=== PATIENT | female | born 1965 | race African-American/Black ===

== ENCOUNTER 2021-04-30 09:24 | Emergency (ER) | payer OTHER ==
[~2021-04-30] VITALS: Ht 165.1 cm; Wt 78.0 kg
[2021-04-30 10:29] LABS: BASOPHILS % 0.4 % (0.0-2.0); EOSINOPHILS % 0.6 % (0.0-5.0); HEMATOCRIT. 28.1 % (36.0-48.0); HEMOGLOBIN. 9.3 g/dL (12.0-16.0); MEAN CORPUSCULAR VOLUME 87.4 fL (81.0-99.0); MEAN PLATELET VOLUME 6.6 fl (7.4-10.4); MONOCYTES % 5.3 % (2.0-8.0); NEUTROPHILS % 77.7 % (40.0-76.0); PLATELET 190 x1000/uL (130-400); RED BLOOD CELL COUNT 3.22 mill/uL (4.2-5.4); RED CELL DISTRIBUTION WIDTH 20.8 % (11.6-14.6)
[2021-04-30 10:36] LABS: CHLORIDE 107 mEq/L (98-107)
[2021-04-30 11:57] LABS: CLARITY URINE CLEAR (CLEAR); COLOR URINE YELLOW (YELLOW); KETONES URINE NEGATIVE (NEGATIVE); LEUKOCYTE ESTERASE URINE TRACE (NEGATIVE); NITRITE URINE NEGATIVE (NEGATIVE); OCCULT BLOOD URINE 1+ (NEGATIVE); PH URINE 6.5 (4.5-8.0); PROTEIN URINE 4+ (NEGATIVE); SPECIFIC GRAVITY URINE 1.014 (1.005-1.030); UROBILINOGEN URINE 0.2 E.U./dL (0.2-1.0)
[2021-04-30] MEDS ORDERED: CEFTRIAXONE 1 G PREMIX 50 ML IV ONE (12:45)
[2021-04-30] MEDS ORDERED: ASPIRIN 81MG TABLET PO ONE (14:00)
[2021-04-30] MEDS ORDERED: LOSA50TA41 PO (17:22)
[2021-04-30] MEDS ORDERED: AMLO10TA80 PO (17:23)
[2021-04-30] MEDS ORDERED: AMLODIPINE 10MG TABLET PO SCH (18:00)
[2021-04-30] MEDS ORDERED: LOSARTAN POTASSIUM 50 MG TABLET PO SCH (18:00)
[2021-04-30] MEDS ORDERED: TERA10CA4 PO (18:47)
[2021-04-30] MEDS ORDERED: LABE200T9 PO (18:48)
[2021-04-30] MEDS ORDERED: LABETALOL HCL 200MG TABLET PO SCH (21:00)
[2021-04-30 23:18] VITALS: BP 189/84
== END 2021-04-30 23:36 | disposition short-term general hospital (02) ==
LOC: ER 09:56
DX: R53.1 Weakness (principal); N39.0 Urinary tract infection, site not specified; I13.2 Hypertensive heart and chronic kidney disease with heart failure and with stage 5 chronic kidney disease, or end stage renal disease; E11.22 Type 2 diabetes mellitus with diabetic chronic kidney disease; N18.6 End stage renal disease; Z99.2 Dependence on renal dialysis; Z20.822 Contact with and (suspected) exposure to COVID-19; Z98.890 Other specified postprocedural states
CPT/HCPCS: 36415; 70450; 71045; 80053; 81003; 83880; 84484; 85025; 87086; 87426; 93005; 96365; 99285; C9803; J0696; U0003; U0005; Z7610

== ENCOUNTER 2022-01-29 20:41 | Emergency (ER) | payer OTHER ==
[~2022-01-29] VITALS: Ht 165.1 cm; Wt 81.0 kg
[~2022-01-29 20:41] MED LIST: AMLO10TA80 PO; LABE200T9 PO; LOSA50TA41 PO; TERA10CA4 PO
[2022-01-29] MEDS ORDERED: SODIUM CHLORIDE 0.9% 1,000 ML IV ONE (22:45)
[2022-01-29 23:46] LABS: BASOPHILS % 0.4 % (0.0-2.0); EOSINOPHILS % 0.6 % (0.0-5.0); HEMOGLOBIN. 9.7 g/dL (12.0-16.0); LYMPHOCYTES % 7.7 % (20.0-50.0); MEAN CORPUSCULAR HEMOGLOBIN 29.2 pg (28.0-32.0); MEAN CORPUSCULAR VOLUME 86.9 fL (81.0-99.0); MEAN PLATELET VOLUME 6.8 fl (7.4-10.4); MONOCYTES % 9.1 % (2.0-8.0); NEUTROPHILS % 82.2 % (40.0-76.0); PLATELET 205 x1000/uL (130-400); RED BLOOD CELL COUNT 3.33 mill/uL (4.2-5.4); RED CELL DISTRIBUTION WIDTH 17.8 % (11.6-14.6)
[2022-01-29 23:53] LABS: CHLORIDE 102 mEq/L (98-107)
[2022-01-30 00:40] LABS: CLARITY URINE CLOUDY (CLEAR); COLOR URINE YELLOW (YELLOW); KETONES URINE NEGATIVE (NEGATIVE); LEUKOCYTE ESTERASE URINE NEGATIVE (NEGATIVE); NITRITE URINE NEGATIVE (NEGATIVE); OCCULT BLOOD URINE TRACE (NEGATIVE); PROTEIN URINE 3+ (NEGATIVE); SPECIFIC GRAVITY URINE 1.013 (1.005-1.030); UROBILINOGEN URINE 0.2 E.U./dL (0.2-1.0)
[2022-01-30] MEDS ORDERED: LABETALOL 5MG/ML SYR 20 MG/4 ML SYRINGE IV ONE ×2 (01:30→04:30)
[2022-01-30] MEDS ORDERED: MORPHINE SULFATE 2 MG/ML CPJ (NOT FOR IM USE) IV ONE (03:00)
[2022-01-30] MEDS ORDERED: HYDRALAZINE 20MG/ML VIAL IV ONE (07:15)
[2022-01-30] MEDS ORDERED: MORPHINE SULFATE 4 MG/ML CPJ (NOT FOR IM USE) IV STA (08:59)
[2022-01-30] MEDS ORDERED: ONDANSETRON HCL 4MG/2ML INJ IV STA (08:59)
[2022-01-30 09:46] VITALS: BP 186/83
[2022-01-30] MEDS ORDERED: ONDANSETRON HCL 4MG/2ML INJ IV ONE (10:45)
== END 2022-01-30 11:34 | disposition short-term general hospital (02) ==
LOC: ER 20:41
DX: I13.2 Hypertensive heart and chronic kidney disease with heart failure and with stage 5 chronic kidney disease, or end stage renal disease (principal); E11.22 Type 2 diabetes mellitus with diabetic chronic kidney disease; M62.81 Muscle weakness (generalized); I50.9 Heart failure, unspecified; N18.6 End stage renal disease; E78.00 Pure hypercholesterolemia, unspecified; Z75.1 Person awaiting admission to adequate facility elsewhere; Z99.2 Dependence on renal dialysis; Z98.890 Other specified postprocedural states; Z79.899 Other long term (current) drug therapy; Z20.822 Contact with and (suspected) exposure to COVID-19
CPT/HCPCS: 36415; 71045; 80053; 81003; 82962; 83605; 84484; 85025; 87426; 93005; 96374; 96375; 96376; 99291; C9803; J0360; J2270; J2405; J3490; J7030

== ENCOUNTER 2022-02-09 23:53 | Emergency (ER) | payer OTHER ==
[~2022-02-09] VITALS: Ht 160 cm; Wt 83.5 kg
[2022-02-10 02:44] LABS: BASOPHILS % 0.8 % (0.0-2.0); EOSINOPHILS % 1.6 % (0.0-5.0); HEMATOCRIT. 22.3 % (36.0-48.0); HEMOGLOBIN. 7.6 g/dL (12.0-16.0); LYMPHOCYTES % 8.1 % (20.0-50.0); MEAN CORPUSCULAR HEMOGLOBIN 29.1 pg (28.0-32.0); MEAN PLATELET VOLUME 6.9 fl (7.4-10.4); NEUTROPHILS % 80.5 % (40.0-76.0); PLATELET 287 x1000/uL (130-400); RED BLOOD CELL COUNT 2.62 mill/uL (4.2-5.4); RED CELL DISTRIBUTION WIDTH 17.5 % (11.6-14.6)
[2022-02-10 02:53] LABS: CLARITY URINE CLEAR (CLEAR); COLOR URINE YELLOW (YELLOW); KETONES URINE NEGATIVE (NEGATIVE); LEUKOCYTE ESTERASE URINE TRACE (NEGATIVE); NITRITE URINE NEGATIVE (NEGATIVE); OCCULT BLOOD URINE TRACE (NEGATIVE); PH URINE 7.5 (4.5-8.0); PROTEIN URINE 3+ (NEGATIVE); SPECIFIC GRAVITY URINE 1.011 (1.005-1.030); UROBILINOGEN URINE 0.2 E.U./dL (0.2-1.0)
[2022-02-10 03:00] LABS: CHLORIDE 100 mEq/L (98-107)
[2022-02-10] MEDS ORDERED: CEFTRIAXONE 1 G PREMIX 50 ML IV NR (03:00)
[2022-02-10 03:08] LABS: BETA HYDROXYBUTYRATE 0.2 mMol/L (0.0-0.3)
[2022-02-10] MEDS ORDERED: ASPIRIN 325MG EC TABLET PO ONE (03:30)
[2022-02-10] MEDS ORDERED: LABETALOL HCL VIAL 20 MG/4 ML VIAL IV ONE (04:15)
[2022-02-10] MEDS ORDERED: HYDRALAZINE 20MG/ML VIAL IV ONE ×2 (04:45→09:00)
[2022-02-10] MEDS ORDERED: MORPHINE SULFATE 4 MG/ML CPJ (NOT FOR IM USE) IV ONE (05:45)
[2022-02-10 12:00] VITALS: BP 201/91
[2022-02-10] MEDS ORDERED: HYDRALAZINE HCL 100MG TABLET PO ONE (13:15)
[2022-02-10] MEDS ORDERED: HYDROCODONE/ACETAMINOPHEN 5/325MG TABLET PO ONE (13:15)
[2022-02-10] MEDS ORDERED: LEVETIRACETAM 500MG PREMIX 100 ML IV NR (13:30)
[2022-02-10] MEDS ORDERED: HYDRALAZINE HCL 100MG TABLET PO NR (14:00)
== END 2022-02-10 14:35 | disposition short-term general hospital (02) ==
LOC: ER 23:53
DX: E11.649 Type 2 diabetes mellitus with hypoglycemia without coma (principal); N39.0 Urinary tract infection, site not specified; R11.2 Nausea with vomiting, unspecified; R77.8 Other specified abnormalities of plasma proteins; I10 Essential (primary) hypertension; Z98.890 Other specified postprocedural states; Z20.822 Contact with and (suspected) exposure to COVID-19
CPT/HCPCS: 36415; 71045; 80053; 81003; 82010; 82962; 83690; 84484; 85025; 87426; 93005; 96361; 96374; 96375; 96376; 99285; C9803; J0360; J0696; J2270; J3490

== ENCOUNTER 2022-02-23 15:57 | Inpatient (IN) | payer OTHER ==
[~2022-02-23] VITALS: Ht 160 cm; Wt 79.4 kg
[2022-02-23] MEDS ORDERED: MORPHINE SULFATE 4 MG/ML CPJ (NOT FOR IM USE) IV STA (16:26)
[2022-02-23] MEDS ORDERED: SODIUM CHLORIDE 0.9% 1,000 ML IV ONE (16:30)
[2022-02-23] MEDS ORDERED: HYDRALAZINE 20MG/ML VIAL IV ONE (16:45)
[2022-02-23 16:52] LABS: BASOPHILS % 0.3 % (0.0-2.0); EOSINOPHILS % 0.4 % (0.0-5.0); HEMATOCRIT. 28.1 % (36.0-48.0); HEMOGLOBIN. 9.3 g/dL (12.0-16.0); LYMPHOCYTES % 14.8 % (20.0-50.0); MEAN CORPUSCULAR HEMOGLOBIN 29.1 pg (28.0-32.0); MEAN PLATELET VOLUME 7.7 fl (7.4-10.4); NEUTROPHILS % 78.5 % (40.0-76.0); PLATELET 198 x1000/uL (130-400); RED CELL DISTRIBUTION WIDTH 17.7 % (11.6-14.6)
[2022-02-23 17:00] LABS: CHLORIDE 95 mEq/L (98-107)
[2022-02-23] MEDS ORDERED: INSULIN LISPRO 100 UNITS/ML SUBCUT ONE (17:30)
[2022-02-23] MEDS ORDERED: NITROGLYCERIN 0.4MG TABLET SL SL PRN (17:45)
[2022-02-23] MEDS ORDERED: ASPIRIN 81MG TABLET PO ONE (18:15)
[2022-02-23] MEDS ORDERED: LABETALOL 5MG/ML SYR 20 MG/4 ML SYRINGE IV NR (18:15)
[2022-02-23] MEDS ORDERED: MORPHINE SULFATE 4 MG/ML CPJ (NOT FOR IM USE) IV ONE (19:15)
[2022-02-23] MEDS ORDERED: MORPHINE SULFATE 2 MG/ML CPJ (NOT FOR IM USE) IV PRN (21:15)
[2022-02-23] MEDS ORDERED: MAGNESIUM/ALUMINUM HYDROXIDE/SIMETHICONE 30ML UDC PO PRN (21:15)
[2022-02-23] MEDS ORDERED: ENOXAPARIN 40MG/0.4ML SYR SUBCUT SCH (21:15)
[2022-02-23] MEDS ORDERED: LORAZEPAM 2MG/ML CPJ IV PRN (21:15)
[2022-02-23] MEDS ORDERED: HYDROCODONE/ACETAMINOPHEN 5/325MG TABLET PO PRN (21:15)
[2022-02-23] MEDS ORDERED: GUAIFENESIN 200MG/10ML SUGAR FREE UDC PO PRN (21:15)
[2022-02-23] MEDS ORDERED: ACETAMINOPHEN 325MG TABLET PO PRN (21:15)
[2022-02-23] MEDS ORDERED: DOCUSATE SODIUM 100MG CAPSULE PO PRN (21:15)
[2022-02-23] MEDS ORDERED: IPRATROPIUM/ALBUTEROL 0.5-3(2.5)MG/3ML NEB HHN PRN (21:15)
[2022-02-23] MEDS ORDERED: DIPHENHYDRAMINE 50MG/ML VIAL IV PRN (21:15)
[2022-02-23] MEDS: CLONIDINE 0.2MG TABLET PO SCH (21:29)
[2022-02-23] MEDS: SODIUM CHLORIDE 0.9% INJ 3ML FLUSH IVF SCH (21:29)
[2022-02-23] MEDS: ENOXAPARIN 30MG/0.3ML SYR SUBCUT SCH (21:29)
[2022-02-23 23:52] LABS: BETA HYDROXYBUTYRATE 3.5 mMol/L (0.0-0.3)
[2022-02-24] VITALS (11 sets, daily range): BP systolic 154–185; BP diastolic 71–94
[2022-02-24] MEDS: HYDRALAZINE 20MG/ML VIAL IV PRN ×2 (01:34→08:22)
[2022-02-24] MEDS: CLONIDINE 0.2MG TABLET PO SCH ×3 (06:01→22:00)
[2022-02-24] MEDS: SODIUM CHLORIDE 0.9% INJ 3ML FLUSH IVF SCH ×3 (06:34→21:06)
[2022-02-24] MEDS: BLOOD SUGAR DIAGNOSTIC STRIP TEST SCH ×4 (07:41→21:05)
[2022-02-24] MEDS: INSULIN LISPRO 100 UNITS/ML SUBCUT SCH ×4 (08:09→21:03)
[2022-02-24] MEDS: ONDANSETRON HCL 4MG/2ML INJ IV PRN (08:22)
[2022-02-24 08:43] LABS: BASOPHILS % 0.8 % (0.0-2.0); EOSINOPHILS % 1.3 % (0.0-5.0); HEMATOCRIT. 25.1 % (36.0-48.0); HEMOGLOBIN. 8.3 g/dL (12.0-16.0); LYMPHOCYTES % 24.1 % (20.0-50.0); MEAN CORPUSCULAR HEMOGLOBIN 29.1 pg (28.0-32.0); MEAN CORPUSCULAR VOLUME 88.3 fL (81.0-99.0); MEAN PLATELET VOLUME 7.5 fl (7.4-10.4); MONOCYTES % 9.4 % (2.0-8.0); NEUTROPHILS % 64.4 % (40.0-76.0); PLATELET 204 x1000/uL (130-400); RED BLOOD CELL COUNT 2.84 mill/uL (4.2-5.4); RED CELL DISTRIBUTION WIDTH 17.6 % (11.6-14.6)
[2022-02-24 08:52] LABS: CHLORIDE 93 mEq/L (98-107)
[2022-02-24] MEDS ORDERED: FURO80TA87 MT (10:48)
[2022-02-24] MEDS ORDERED: SPIR25TA MT (10:48)
[2022-02-24] MEDS ORDERED: LABE100T5 MT (10:48)
[2022-02-24] MEDS ORDERED: TERA10CA4 PO (10:48)
[2022-02-24] MEDS ORDERED: LOSA50TA41 PO (10:48)
[2022-02-24] MEDS ORDERED: HYDR-4133 MT (10:48)
[2022-02-24] MEDS ORDERED: HYDRALAZINE HCL 50MG TABLET PO SCH (11:15)
[2022-02-24] MEDS ORDERED: INSULIN GLARGINE 100 UNITS/ML SUBCUT SCH (11:45)
[2022-02-24] MEDS: HYDRALAZINE HCL 50MG TABLET PO SCH ×2 (12:32→17:02)
[2022-02-24] MEDS: AMLODIPINE 5MG TABLET PO SCH ×2 (12:33→21:00)
[2022-02-24] MEDS: LOSARTAN POTASSIUM 50 MG TABLET PO SCH ×2 (14:58→20:00)
[2022-02-24] MEDS: SPIRONOLACTONE 25MG TABLET PO SCH (14:59)
[2022-02-24] MEDS: LABETALOL HCL 200MG TABLET PO SCH ×3 (14:59→21:00)
[2022-02-24] MEDS: FUROSEMIDE 40MG TABLET PO SCH ×2 (14:59→20:00)
[2022-02-24] MEDS ORDERED: FUROSEMIDE 40MG/4 ML UDC PO SCH (15:00)
[2022-02-24] MEDS ORDERED: AMLODIPINE 5MG TABLET PO SCH (21:00)
[2022-02-24] MEDS: TERAZOSIN HCL 5MG CAPSULE PO SCH (21:00)
[2022-02-24] MEDS: INSULIN GLARGINE 100 UNITS/ML SUBCUT SCH (21:03)
[2022-02-24] MEDS: ENOXAPARIN 30MG/0.3ML SYR SUBCUT SCH (21:04)
[2022-02-25] VITALS (12 sets, daily range): BP systolic 149–179; BP diastolic 73–100
[2022-02-25] MEDS: HYDRALAZINE 20MG/ML VIAL IV PRN ×2 (02:08→06:27)
[2022-02-25] MEDS: CLONIDINE 0.2MG TABLET PO SCH ×3 (05:04→21:52)
[2022-02-25] MEDS: SODIUM CHLORIDE 0.9% INJ 3ML FLUSH IVF SCH ×3 (05:06→21:52)
[2022-02-25 06:49] LABS: BASOPHILS % 0.8 % (0.0-2.0); EOSINOPHILS % 3.9 % (0.0-5.0); HEMATOCRIT. 24.7 % (36.0-48.0); HEMOGLOBIN. 8.3 g/dL (12.0-16.0); LYMPHOCYTES % 26.3 % (20.0-50.0); MEAN CORPUSCULAR HEMOGLOBIN 28.9 pg (28.0-32.0); MEAN CORPUSCULAR VOLUME 86.3 fL (81.0-99.0); MEAN PLATELET VOLUME 7.5 fl (7.4-10.4); MONOCYTES % 10.6 % (2.0-8.0); NEUTROPHILS % 58.4 % (40.0-76.0); PLATELET 206 x1000/uL (130-400); RED BLOOD CELL COUNT 2.86 mill/uL (4.2-5.4); RED CELL DISTRIBUTION WIDTH 17.3 % (11.6-14.6)
[2022-02-25] MEDS: BLOOD SUGAR DIAGNOSTIC STRIP TEST SCH ×4 (07:47→21:09)
[2022-02-25] MEDS: FUROSEMIDE 40MG TABLET PO SCH ×2 (08:37→17:19)
[2022-02-25] MEDS: HYDRALAZINE HCL 50MG TABLET PO SCH ×3 (08:38→17:19)
[2022-02-25] MEDS: LOSARTAN POTASSIUM 50 MG TABLET PO SCH ×2 (08:38→17:19)
[2022-02-25] MEDS: AMLODIPINE 5MG TABLET PO SCH ×2 (08:38→20:34)
[2022-02-25] MEDS: SPIRONOLACTONE 25MG TABLET PO SCH (08:39)
[2022-02-25] MEDS: LABETALOL HCL 200MG TABLET PO SCH ×4 (08:39→20:35)
[2022-02-25] MEDS: INSULIN GLARGINE 100 UNITS/ML SUBCUT SCH ×2 (08:40→22:00)
[2022-02-25] MEDS: INSULIN LISPRO 100 UNITS/ML SUBCUT SCH ×4 (08:40→21:00)
[2022-02-25] MEDS: FOLIC ACID/VITAMIN B COMP W-C TABLET PO SCH (13:06)
[2022-02-25] MEDS: CALCIUM ACETATE 667MG CAPSULE PO SCH ×2 (13:06→17:19)
[2022-02-25] MEDS: DEXTROSE 50% WATER 50ML SYRINGE IV PRN (13:46)
[2022-02-25] MEDS: TERAZOSIN HCL 5MG CAPSULE PO SCH (20:34)
[2022-02-25] MEDS: ENOXAPARIN 30MG/0.3ML SYR SUBCUT SCH (20:39)
[2022-02-26] VITALS (12 sets, daily range): BP systolic 133–176; BP diastolic 70–96
[2022-02-26] MEDS: ONDANSETRON HCL 4MG/2ML INJ IV PRN ×2 (02:14→10:18)
[2022-02-26] MEDS: HYDRALAZINE 20MG/ML VIAL IV PRN ×2 (03:03→10:19)
[2022-02-26] MEDS: SODIUM CHLORIDE 0.9% INJ 3ML FLUSH IVF SCH ×3 (06:10→22:17)
[2022-02-26] MEDS: CLONIDINE 0.2MG TABLET PO SCH ×3 (06:10→22:17)
[2022-02-26] MEDS: BLOOD SUGAR DIAGNOSTIC STRIP TEST SCH ×4 (07:30→20:57)
[2022-02-26] MEDS: LOSARTAN POTASSIUM 50 MG TABLET PO SCH ×2 (10:14→18:30)
[2022-02-26] MEDS: FUROSEMIDE 40MG TABLET PO SCH ×2 (10:15→18:25)
[2022-02-26] MEDS: CALCIUM ACETATE 667MG CAPSULE PO SCH ×3 (10:16→18:26)
[2022-02-26] MEDS: HYDRALAZINE HCL 50MG TABLET PO SCH ×3 (10:16→18:26)
[2022-02-26] MEDS: SPIRONOLACTONE 25MG TABLET PO SCH (10:16)
[2022-02-26] MEDS: LABETALOL HCL 200MG TABLET PO SCH ×4 (10:17→20:39)
[2022-02-26] MEDS: AMLODIPINE 5MG TABLET PO SCH ×2 (10:18→20:39)
[2022-02-26] MEDS: INSULIN LISPRO 100 UNITS/ML SUBCUT SCH ×4 (10:20→20:57)
[2022-02-26] MEDS: INSULIN GLARGINE 100 UNITS/ML SUBCUT SCH ×2 (10:21→21:48)
[2022-02-26] MEDS: FOLIC ACID/VITAMIN B COMP W-C TABLET PO SCH (11:17)
[2022-02-26] MEDS ORDERED: NALOXONE HCL 0.4MG/ML VIAL IV PRN (15:30)
[2022-02-26] MEDS: DEXTROSE 50% WATER 50ML SYRINGE IV PRN (17:37)
[2022-02-26] MEDS: ENOXAPARIN 30MG/0.3ML SYR SUBCUT SCH (20:37)
[2022-02-26] MEDS: TERAZOSIN HCL 5MG CAPSULE PO SCH (20:38)
[2022-02-26] MEDS ORDERED: EPOETIN ALFA-EPBX 10,000 UNIT/ML VIAL SUBCUT SCH (21:00)
[2022-02-27] VITALS (13 sets, daily range): BP systolic 138–179; BP diastolic 75–101
[2022-02-27] MEDS: HYDRALAZINE HCL 50MG TABLET PO SCH ×4 (00:09→17:39)
[2022-02-27] MEDS: CLONIDINE 0.2MG TABLET PO SCH ×3 (05:16→22:12)
[2022-02-27] MEDS: SODIUM CHLORIDE 0.9% INJ 3ML FLUSH IVF SCH ×2 (05:16→14:00)
[2022-02-27 05:23] LABS: BASOPHILS % 0.8 % (0.0-2.0); EOSINOPHILS % 5.6 % (0.0-5.0); HEMATOCRIT. 25.6 % (36.0-48.0); HEMOGLOBIN. 8.5 g/dL (12.0-16.0); LYMPHOCYTES % 40.8 % (20.0-50.0); MEAN CORPUSCULAR HEMOGLOBIN 28.4 pg (28.0-32.0); MEAN CORPUSCULAR VOLUME 85.8 fL (81.0-99.0); MEAN PLATELET VOLUME 7.1 fl (7.4-10.4); MONOCYTES % 13.5 % (2.0-8.0); NEUTROPHILS % 39.3 % (40.0-76.0); PLATELET 171 x1000/uL (130-400); RED BLOOD CELL COUNT 2.98 mill/uL (4.2-5.4); RED CELL DISTRIBUTION WIDTH 17.4 % (11.6-14.6)
[2022-02-27] MEDS: HYDRALAZINE 20MG/ML VIAL IV PRN ×2 (06:47→18:48)
[2022-02-27] MEDS: BLOOD SUGAR DIAGNOSTIC STRIP TEST SCH ×4 (07:30→20:06)
[2022-02-27] MEDS: INSULIN LISPRO 100 UNITS/ML SUBCUT SCH ×4 (08:45→20:08)
[2022-02-27] MEDS: FUROSEMIDE 40MG TABLET PO SCH ×2 (08:46→17:30)
[2022-02-27] MEDS: LOSARTAN POTASSIUM 50 MG TABLET PO SCH ×2 (08:46→17:45)
[2022-02-27] MEDS: SPIRONOLACTONE 25MG TABLET PO SCH (08:46)
[2022-02-27] MEDS: FOLIC ACID/VITAMIN B COMP W-C TABLET PO SCH (08:46)
[2022-02-27] MEDS: LABETALOL HCL 200MG TABLET PO SCH ×4 (08:46→20:06)
[2022-02-27] MEDS: AMLODIPINE 5MG TABLET PO SCH ×2 (08:47→20:05)
[2022-02-27] MEDS: CALCIUM ACETATE 667MG CAPSULE PO SCH ×3 (08:56→17:39)
[2022-02-27] MEDS: TERAZOSIN HCL 5MG CAPSULE PO SCH (20:06)
[2022-02-27] MEDS: ENOXAPARIN 30MG/0.3ML SYR SUBCUT SCH (20:08)
== END 2022-02-27 22:20 | disposition home or self-care (01) | DRG 640 ==
LOC: ER 15:57 → 5EST 20:07 → EDBEDREQSVC 21:33 → EDBEDREQTM 21:33 → ENRESERV 22:15 → 5EST 02-24 02:30
PROVIDERS: ADMIT Internal Medicine; ATTEND Internal Medicine
PROC: 3E1M39Z Irrigation of Peritoneal Cavity using Dialysate, Percutaneous Approach (ICD-10-PCS; principal; 2022-02-26)
DX: E87.70 Fluid overload, unspecified (principal); E43 Unspecified severe protein-calorie malnutrition; N18.6 End stage renal disease; I16.1 Hypertensive emergency; I12.0 Hypertensive chronic kidney disease with stage 5 chronic kidney disease or end stage renal disease; E87.1 Hypo-osmolality and hyponatremia; E87.2 Acidosis; E86.0 Dehydration; D64.9 Anemia, unspecified; E11.22 Type 2 diabetes mellitus with diabetic chronic kidney disease; Z20.822 Contact with and (suspected) exposure to COVID-19; E11.65 Type 2 diabetes mellitus with hyperglycemia; E78.5 Hyperlipidemia, unspecified; F17.200 Nicotine dependence, unspecified, uncomplicated; I51.7 Cardiomegaly; J44.9 Chronic obstructive pulmonary disease, unspecified; R19.7 Diarrhea, unspecified; Z88.8 Allergy status to other drugs, medicaments and biological substances; Z99.2 Dependence on renal dialysis; Z79.899 Other long term (current) drug therapy; Z68.31 Body mass index [BMI] 31.0-31.9, adult
CPT/HCPCS: 36415; 71045; 80048; 80051; 80053; 82010; 82947; 82962; 84484; 85025; 87426; 93005; 93306; 97162; 99285; J0360; J0885; J1650; J1815; J2270; J2405; J3490; J7030

== ENCOUNTER 2022-07-25 23:50 | Inpatient (IN) | payer OTHER ==
[~2022-07-25] VITALS: Ht 165.1 cm; Wt 87.1 kg
[~2022-07-25 23:50] MED LIST changes: +FURO80TA87 MT; +HYDR-4133 MT; +LABE100T9 MT; -LABE200T9 PO; +SPIR25TA MT
[2022-07-26] MEDS ORDERED: LABETALOL 5MG/ML SYR 20 MG/4 ML SYRINGE IV NR (00:30)
[2022-07-26 00:50] LABS: BASOPHILS % 0.4 % (0.0-2.0); EOSINOPHILS % 2.7 % (0.0-5.0); HEMATOCRIT. 23.5 % (36.0-48.0); HEMOGLOBIN. 8.1 g/dL (12.0-16.0); LYMPHOCYTES % 13.9 % (20.0-50.0); MEAN CORPUSCULAR HEMOGLOBIN 30.9 pg (28.0-32.0); MEAN CORPUSCULAR VOLUME 89.9 fL (81.0-99.0); MEAN PLATELET VOLUME 6.9 fl (7.4-10.4); MONOCYTES % 7.8 % (2.0-8.0); NEUTROPHILS % 75.2 % (40.0-76.0); PLATELET 211 x1000/uL (130-400); RED BLOOD CELL COUNT 2.61 mill/uL (4.2-5.4); RED CELL DISTRIBUTION WIDTH 16.5 % (11.6-14.6)
[2022-07-26 00:54] LABS: CHLORIDE 96 mEq/L (98-107)
[2022-07-26] MEDS ORDERED: HYDRALAZINE 20MG/ML VIAL IV ONE (03:45)
[2022-07-26] MEDS ORDERED: ONDANSETRON HCL 4MG/2ML INJ IV PRN (05:45)
[2022-07-26] MEDS ORDERED: ACETAMINOPHEN 325MG TABLET PO PRN (05:45)
[2022-07-26] MEDS ORDERED: NA PHOS,M-B/NA PHOS,DI-BA ENEMA 118ML PR PRN (05:45)
[2022-07-26] MEDS ORDERED: IPRATROPIUM/ALBUTEROL 0.5-3(2.5)MG/3ML NEB HHN PRN (05:45)
[2022-07-26] MEDS ORDERED: MAGNESIUM/ALUMINUM HYDROXIDE/SIMETHICONE 30ML UDC PO PRN (05:45)
[2022-07-26] MEDS ORDERED: GUAIFENESIN 200MG/10ML SUGAR FREE UDC PO PRN (05:45)
[2022-07-26] MEDS ORDERED: DOCUSATE SODIUM 100MG CAPSULE PO PRN (05:45)
[2022-07-26] MEDS ORDERED: DEXTROSE 50% WATER 50ML SYRINGE IV PRN (06:00)
[2022-07-26] MEDS ORDERED: FUROSEMIDE 40MG/4ML VIAL IVP SCH ×3 (06:00→18:00)
[2022-07-26 06:19] LABS: BASOPHILS % 0.7 % (0.0-2.0); EOSINOPHILS % 2.8 % (0.0-5.0); HEMATOCRIT. 22.8 % (36.0-48.0); HEMOGLOBIN. 7.8 g/dL (12.0-16.0); LYMPHOCYTES % 12.5 % (20.0-50.0); MEAN CORPUSCULAR HEMOGLOBIN 30.8 pg (28.0-32.0); MEAN CORPUSCULAR VOLUME 90.3 fL (81.0-99.0); MEAN PLATELET VOLUME 7.5 fl (7.4-10.4); MONOCYTES % 5.4 % (2.0-8.0); NEUTROPHILS % 78.6 % (40.0-76.0); PLATELET 210 x1000/uL (130-400); RED BLOOD CELL COUNT 2.52 mill/uL (4.2-5.4); RED CELL DISTRIBUTION WIDTH 17.1 % (11.6-14.6)
[2022-07-26 06:28] LABS: CHLORIDE 97 mEq/L (98-107)
[2022-07-26 06:35] LABS: PHOSPHORUS 5.4 mg/dL (2.5-4.9); TOTAL IRON BINDING CAPACITY 237 ug/dL (250-450)
[2022-07-26 07:01] LABS: VITAMIN B12 SERUM 600 pg/mL (211-911)
[2022-07-26] MEDS: ACETAMINOPHEN 325MG TABLET PO PRN ×2 (07:05→16:00)
[2022-07-26] MEDS: CLONIDINE 0.1MG TABLET PO PRN ×2 (07:43→17:53)
[2022-07-26] MEDS: SPIRONOLACTONE 25MG TABLET PO SCH (09:00)
[2022-07-26] MEDS: LABETALOL HCL 100MG TABLET PO SCH ×4 (09:00→22:22)
[2022-07-26] MEDS: BLOOD SUGAR DIAGNOSTIC STRIP TEST SCH ×4 (09:00→21:00)
[2022-07-26] MEDS: HYDRALAZINE HCL 10MG TABLET PO SCH ×3 (09:00→16:08)
[2022-07-26] MEDS: LOSARTAN POTASSIUM 50 MG TABLET PO SCH ×2 (09:28→16:10)
[2022-07-26] MEDS: AMLODIPINE 10MG TABLET PO SCH (09:28)
[2022-07-26] MEDS: ENOXAPARIN 30MG/0.3ML SYR SUBCUT SCH (09:29)
[2022-07-26] MEDS ORDERED: SODIUM POLYSTYRENE SULFONATE 15 G/60 ML BOT PO NR (09:30)
[2022-07-26] MEDS: FUROSEMIDE 40MG/4ML VIAL IVP SCH ×3 (09:45→22:57)
[2022-07-26] MEDS ORDERED: ENOXAPARIN 40MG/0.4ML SYR SUBCUT ONE (10:00)
[2022-07-26 10:14] LABS: BG BASE EXCESS -0.3 mmol/L (-2.0-2.0); BG DEOXYHEMOGLOBIN 7.8 % (0.0-5.0); BG HCO3 ACT 23.6 mmol/L (22.0-26.0); BG METHEMOGLOBIN 0.3 % (0.0-1.5); BG OXYGEN SATURATION 92.2 % (92.0-98.5); BG OXYHEMOGLOBIN 91.9 % (94.0-97.0); BG PCO2 35.3 mmHg (35.0-45.0); BG PH 7.443 (7.350-7.450); BG PO2 64.6 mmHg (75.0-100.0); BG SAMPLE SITE RIGHT RADIAL; BG VENT MODE NASAL CANNULA
[2022-07-26 11:27] VITALS: BP 179/98
[2022-07-26 11:29] VITALS: BP 179/98
[2022-07-26] MEDS: INSULIN LISPRO 100 UNITS/ML SUBCUT SCH ×3 (12:20→22:25)
[2022-07-26] MEDS: INSULIN GLARGINE 100 UNITS/ML SUBCUT SCH ×2 (12:20→22:24)
[2022-07-26 13:00] VITALS: BP 166/95
[2022-07-26 14:00] VITALS: BP 162/95
[2022-07-26 16:00] VITALS: BP 198/100
[2022-07-26 16:27] LABS: CREATINE KINASE MB FRACTION 7.4 ng/mL (0.5-3.6)
[2022-07-26 20:00] VITALS: BP 189/93
[2022-07-26] MEDS ORDERED: EPOETIN ALFA-EPBX 4,000 UNIT/ML VIAL SUBCUT NR (21:00)
[2022-07-26] MEDS ORDERED: INSULIN LISPRO 100 UNITS/ML SUBCUT NR (22:03)
[2022-07-26] MEDS: FAMOTIDINE 20MG TABLET PO SCH (22:22)
[2022-07-26] MEDS: TERAZOSIN HCL 5MG CAPSULE PO SCH (22:52)
[2022-07-26 23:19] LABS: CREATINE KINASE MB FRACTION 7.1 ng/mL (0.5-3.6)
[2022-07-26] MEDS ORDERED: CALC667C MT (23:53)
[2022-07-27] VITALS (10 sets, daily range): BP systolic 155–176; BP diastolic 85–102
[2022-07-27] MEDS ORDERED: CLON1PAT11 TP (00:38)
[2022-07-27] MEDS: CLONIDINE 0.1MG TABLET PO PRN ×2 (00:39→14:06)
[2022-07-27] MEDS: CALCIUM ACETATE 667MG CAPSULE PO SCH ×4 (00:39→18:01)
[2022-07-27] MEDS: ACETAMINOPHEN 325MG TABLET PO PRN ×3 (00:42→14:39)
[2022-07-27] MEDS: FUROSEMIDE 40MG/4ML VIAL IVP SCH ×3 (06:41→22:06)
[2022-07-27] MEDS: BLOOD SUGAR DIAGNOSTIC STRIP TEST SCH ×4 (06:54→21:50)
[2022-07-27] MEDS: INSULIN LISPRO 100 UNITS/ML SUBCUT SCH ×4 (07:20→22:15)
[2022-07-27 08:06] LABS: BASOPHILS % 0.6 % (0.0-2.0); EOSINOPHILS % 3.3 % (0.0-5.0); LYMPHOCYTES % 14.4 % (20.0-50.0); MEAN CORPUSCULAR HEMOGLOBIN 30.5 pg (28.0-32.0); MEAN CORPUSCULAR VOLUME 90.6 fL (81.0-99.0); MONOCYTES % 7.9 % (2.0-8.0); NEUTROPHILS % 73.8 % (40.0-76.0); PLATELET 173 x1000/uL (130-400); RED BLOOD CELL COUNT 2.29 mill/uL (4.2-5.4); RED CELL DISTRIBUTION WIDTH 17.2 % (11.6-14.6)
[2022-07-27] MEDS: LOSARTAN POTASSIUM 50 MG TABLET PO SCH ×2 (08:26→18:01)
[2022-07-27] MEDS: LABETALOL HCL 100MG TABLET PO SCH ×3 (08:26→18:01)
[2022-07-27] MEDS: AMLODIPINE 10MG TABLET PO SCH (08:26)
[2022-07-27] MEDS: ENOXAPARIN 30MG/0.3ML SYR SUBCUT SCH (08:27)
[2022-07-27] MEDS: SPIRONOLACTONE 25MG TABLET PO SCH (08:27)
[2022-07-27] MEDS: HYDRALAZINE HCL 10MG TABLET PO SCH ×3 (08:27→18:01)
[2022-07-27 08:53] LABS: HEMATOCRIT. 20.8 % (36.0-48.0)
[2022-07-27 08:59] LABS: CREATINE KINASE MB FRACTION 6.3 ng/mL (0.5-3.6); PHOSPHORUS 5.1 mg/dL (2.5-4.9)
[2022-07-27 09:56] LABS: T4 FREE 0.59 ng/dL (0.76-1.46)
[2022-07-27] MEDS: INSULIN GLARGINE 100 UNITS/ML SUBCUT SCH ×2 (11:00→22:15)
[2022-07-27] MEDS: TERAZOSIN HCL 5MG CAPSULE PO SCH (22:09)
[2022-07-27] MEDS: FAMOTIDINE 20MG TABLET PO SCH (22:10)
[2022-07-28 00:22] VITALS: BP 173/87
[2022-07-28] MEDS: CLONIDINE 0.1MG TABLET PO PRN ×2 (00:28→06:26)
[2022-07-28 04:07] VITALS: BP 170/81
[2022-07-28] MEDS ORDERED: INSULIN LISPRO 100 UNITS/ML SUBCUT NR (04:30)
[2022-07-28 05:56] LABS: BASOPHILS % 0.5 % (0.0-2.0); EOSINOPHILS % 4.5 % (0.0-5.0); HEMATOCRIT. 22.6 % (36.0-48.0); HEMOGLOBIN. 7.6 g/dL (12.0-16.0); LYMPHOCYTES % 14.1 % (20.0-50.0); MEAN CORPUSCULAR HEMOGLOBIN 30.5 pg (28.0-32.0); MEAN CORPUSCULAR VOLUME 91.1 fL (81.0-99.0); MEAN PLATELET VOLUME 7.4 fl (7.4-10.4); MONOCYTES % 6.7 % (2.0-8.0); NEUTROPHILS % 74.2 % (40.0-76.0); PLATELET 186 x1000/uL (130-400); RED BLOOD CELL COUNT 2.48 mill/uL (4.2-5.4); RED CELL DISTRIBUTION WIDTH 17.3 % (11.6-14.6)
[2022-07-28 06:10] LABS: PHOSPHORUS 4.8 mg/dL (2.5-4.9)
[2022-07-28] MEDS: FUROSEMIDE 40MG/4ML VIAL IVP SCH (06:17)
[2022-07-28] MEDS: BLOOD SUGAR DIAGNOSTIC STRIP TEST SCH (06:28)
[2022-07-28] MEDS: INSULIN LISPRO 100 UNITS/ML SUBCUT SCH (06:45)
[2022-07-28 07:49] VITALS: BP 174/90
[2022-07-28] MEDS: SPIRONOLACTONE 25MG TABLET PO SCH (08:28)
[2022-07-28] MEDS: ACETAMINOPHEN 325MG TABLET PO PRN (08:29)
[2022-07-28] MEDS: LABETALOL HCL 100MG TABLET PO SCH (08:29)
[2022-07-28] MEDS: CALCIUM ACETATE 667MG CAPSULE PO SCH (08:29)
[2022-07-28] MEDS: HYDRALAZINE HCL 10MG TABLET PO SCH (08:29)
[2022-07-28] MEDS: AMLODIPINE 10MG TABLET PO SCH (08:29)
[2022-07-28] MEDS: LOSARTAN POTASSIUM 50 MG TABLET PO SCH (08:30)
[2022-07-28] MEDS ORDERED: ENOXAPARIN 40MG/0.4ML SYR SUBCUT SCH (09:00)
== END 2022-07-28 08:43 | disposition short-term general hospital (02) | DRG 304 ==
LOC: ER 23:50 → 3WST 07-26 05:23 → ENRESERV 07-26 09:17
PROVIDERS: ADMIT Internal Medicine; ATTEND Internal Medicine
PROC: 3E1M39Z Irrigation of Peritoneal Cavity using Dialysate, Percutaneous Approach (ICD-10-PCS; principal; 2022-07-26)
DX: I16.1 Hypertensive emergency (principal); E43 Unspecified severe protein-calorie malnutrition; I50.33 Acute on chronic diastolic (congestive) heart failure; N18.6 End stage renal disease; J96.01 Acute respiratory failure with hypoxia; E87.1 Hypo-osmolality and hyponatremia; I13.2 Hypertensive heart and chronic kidney disease with heart failure and with stage 5 chronic kidney disease, or end stage renal disease; E78.5 Hyperlipidemia, unspecified; D63.1 Anemia in chronic kidney disease; E11.22 Type 2 diabetes mellitus with diabetic chronic kidney disease; E03.9 Hypothyroidism, unspecified; G47.33 Obstructive sleep apnea (adult) (pediatric); E87.5 Hyperkalemia; E83.42 Hypomagnesemia; E11.65 Type 2 diabetes mellitus with hyperglycemia; Z20.822 Contact with and (suspected) exposure to COVID-19; R07.9 Chest pain, unspecified; E83.39 Other disorders of phosphorus metabolism; Z79.899 Other long term (current) drug therapy; Z99.2 Dependence on renal dialysis; Z86.73 Personal history of transient ischemic attack (TIA), and cerebral infarction without residual deficits; Z82.49 Family history of ischemic heart disease and other diseases of the circulatory system; Z83.3 Family history of diabetes mellitus; Z88.8 Allergy status to other drugs, medicaments and biological substances; Z68.32 Body mass index [BMI] 32.0-32.9, adult
CPT/HCPCS: 36415; 36600; 71045; 80048; 80053; 80061; 82375; 82550; 82553; 82607; 82746; 82805; 82962; 83036; 83540; 83550; 83735; 83880; 84100; 84439; 84443; 84484; 85025; 87426; 90945; 93306; 93970; 99285; C9803; J0360; J0885; J1650; J1815; J1940; J2405; J3490

== ENCOUNTER 2022-09-13 08:03 | Inpatient (IN) | payer OTHER ==
[~2022-09-13] VITALS: Ht 160 cm; Wt 77.1 kg
[2022-09-13] MEDS ORDERED: OXYMETAZOLINE HCL NASAL SPRAY 15ML BOTHNSTRLS STA (10:00)
[2022-09-13 10:15] LABS: BASOPHILS % 0.5 % (0.0-2.0); EOSINOPHILS % 2.6 % (0.0-5.0); HEMATOCRIT. 32.9 % (36.0-48.0); HEMOGLOBIN. 10.5 g/dL (12.0-16.0); LYMPHOCYTES % 14.6 % (20.0-50.0); MEAN CORPUSCULAR HEMOGLOBIN 29.3 pg (28.0-32.0); MEAN CORPUSCULAR VOLUME 91.7 fL (81.0-99.0); MEAN PLATELET VOLUME 7.4 fl (7.4-10.4); MONOCYTES % 10.8 % (2.0-8.0); NEUTROPHILS % 71.5 % (40.0-76.0); PLATELET 254 x1000/uL (130-400); RED BLOOD CELL COUNT 3.59 mill/uL (4.2-5.4); RED CELL DISTRIBUTION WIDTH 21.8 % (11.6-14.6)
[2022-09-13] MEDS ORDERED: CEFTRIAXONE 1 G PREMIX 50 ML IV ONE (10:15)
[2022-09-13] MEDS ORDERED: AZITHROMYCIN 500MG/250ML 250 ML IV ONE (10:15)
[2022-09-13 10:35] LABS: CHLORIDE 98 mEq/L (98-107)
[2022-09-13] MEDS ORDERED: DOCUSATE SODIUM 100MG CAPSULE PO PRN (15:30)
[2022-09-13] MEDS ORDERED: ACETAMINOPHEN 325MG TABLET PO PRN ×2 (15:30)
[2022-09-13] MEDS ORDERED: ONDANSETRON HCL 4MG/2ML INJ IV PRN (15:30)
[2022-09-13] MEDS ORDERED: IPRATROPIUM/ALBUTEROL 0.5-3(2.5)MG/3ML NEB HHN PRN (15:30)
[2022-09-13] MEDS ORDERED: LORAZEPAM 0.5MG TABLET PO PRN (15:30)
[2022-09-13] MEDS ORDERED: HYDROCODONE/ACETAMINOPHEN 5/325MG TABLET PO PRN (15:30)
[2022-09-13] MEDS: AMLODIPINE 10MG TABLET PO SCH (16:08)
[2022-09-13] MEDS: LOSARTAN POTASSIUM 100 MG TABLET PO SCH (16:08)
[2022-09-13] MEDS ORDERED: DEXTROSE 50% WATER 50ML SYRINGE IV PRN (17:00)
[2022-09-13] MEDS: INSULIN LISPRO 100 UNITS/ML SUBCUT SCH ×2 (17:13→21:15)
[2022-09-13] MEDS ORDERED: INSULIN LISPRO 100 UNITS/ML SUBCUT NR (18:15)
[2022-09-13] MEDS: BLOOD SUGAR DIAGNOSTIC STRIP TEST SCH (21:03)
[2022-09-13] MEDS: LABETALOL HCL 300MG TABLET PO SCH (21:39)
[2022-09-13] MEDS ORDERED: INSULIN GLARGINE 100 UNITS/ML SUBCUT SCH (22:00)
[2022-09-13] MEDS: HYDRALAZINE HCL 100MG TABLET PO SCH (22:54)
[2022-09-14] VITALS (12 sets, daily range): BP systolic 140–180; BP diastolic 64–86
[2022-09-14] MEDS: CLONIDINE 0.1MG TABLET PO PRN ×2 (00:37→14:31)
[2022-09-14] MEDS ORDERED: CLON1PAT12 TD (03:43)
[2022-09-14] MEDS ORDERED: LABE300T36 PO (03:43)
[2022-09-14] MEDS ORDERED: LEVO300T6 PO (03:43)
[2022-09-14] MEDS ORDERED: LOSA100T32 PO (03:43)
[2022-09-14] MEDS ORDERED: AMLO10TA80 PO (03:43)
[2022-09-14] MEDS ORDERED: PRAV80TA19 PO (03:43)
[2022-09-14] MEDS ORDERED: HYDR-4135 PO (03:43)
[2022-09-14] MEDS ORDERED: TERA10CA4 PO (03:43)
[2022-09-14] MEDS ORDERED: CINA30TA5 PO (03:43)
[2022-09-14] MEDS: HYDRALAZINE HCL 100MG TABLET PO SCH ×2 (06:08→13:54)
[2022-09-14] MEDS: BLOOD SUGAR DIAGNOSTIC STRIP TEST SCH ×2 (06:08→11:40)
[2022-09-14] MEDS: INSULIN LISPRO 100 UNITS/ML SUBCUT SCH ×2 (06:10→13:58)
[2022-09-14] MEDS ORDERED: ASPIRIN 81MG TABLET PO SCH (09:00)
[2022-09-14 09:04] LABS: HEMATOCRIT. 28.2 % (36.0-48.0); HEMOGLOBIN. 9.3 g/dL (12.0-16.0); MEAN CORPUSCULAR HEMOGLOBIN 29.8 pg (28.0-32.0); MEAN CORPUSCULAR VOLUME 90.7 fL (81.0-99.0); MEAN PLATELET VOLUME 7.4 fl (7.4-10.4); PLATELET 226 x1000/uL (130-400); RED BLOOD CELL COUNT 3.11 mill/uL (4.2-5.4); RED CELL DISTRIBUTION WIDTH 21.8 % (11.6-14.6)
[2022-09-14] MEDS: AMLODIPINE 10MG TABLET PO SCH (09:44)
[2022-09-14] MEDS: LOSARTAN POTASSIUM 100 MG TABLET PO SCH (09:44)
[2022-09-14] MEDS: LABETALOL HCL 300MG TABLET PO SCH (09:45)
[2022-09-14] MEDS ORDERED: LEVOTHYROXINE SODIUM 150MCG TABLET PO SCH (10:00)
[2022-09-14] MEDS ORDERED: CINACALCET HCL 30MG TABLET PO SCH (11:00)
[2022-09-14 13:37] LABS: HEPATITIS B SURFACE ANTIGEN NEGATIVE
[2022-09-14] MEDS ORDERED: ATORVASTATIN CALCIUM 40MG TABLET PO SCH (21:00)
[2022-09-15 00:33] LABS: PLATELET ESTIMATE NORMAL
== END 2022-09-14 17:07 | disposition home or self-care (01) | DRG 150 ==
LOC: ER 08:03 → MICUSO 11:38 → EDBEDREQ 11:42 → 7EST 09-14 00:54
PROVIDERS: ADMIT Internal Medicine; ATTEND Internal Medicine
PROC: 5A1D70Z Performance of Urinary Filtration, Intermittent, Less than 6 Hours Per Day (ICD-10-PCS; principal; 2022-09-14)
DX: R04.0 Epistaxis (principal); I21.4 Non-ST elevation (NSTEMI) myocardial infarction; J18.9 Pneumonia, unspecified organism; N18.6 End stage renal disease; I13.2 Hypertensive heart and chronic kidney disease with heart failure and with stage 5 chronic kidney disease, or end stage renal disease; E11.649 Type 2 diabetes mellitus with hypoglycemia without coma; E87.70 Fluid overload, unspecified; I50.9 Heart failure, unspecified; I35.8 Other nonrheumatic aortic valve disorders; I16.0 Hypertensive urgency; G47.33 Obstructive sleep apnea (adult) (pediatric); E11.65 Type 2 diabetes mellitus with hyperglycemia; E11.22 Type 2 diabetes mellitus with diabetic chronic kidney disease; D64.9 Anemia, unspecified; D72.819 Decreased white blood cell count, unspecified; Z96.41 Presence of insulin pump (external) (internal); Z86.73 Personal history of transient ischemic attack (TIA), and cerebral infarction without residual deficits; I25.2 Old myocardial infarction; Z99.2 Dependence on renal dialysis; Z88.8 Allergy status to other drugs, medicaments and biological substances; Z79.4 Long term (current) use of insulin
CPT/HCPCS: 36415; 71045; 80048; 80053; 82962; 83036; 84484; 85025; 86705; 86709; 86803; 86850; 86900; 87340; 87426; 87804; 90935; 93005; 99291; C9803; J0456; J0696; J1815; J2405

== ENCOUNTER 2022-11-19 06:20 | Emergency (ER) | payer OTHER ==
[~2022-11-19] VITALS: Ht 160 cm; Wt 69.0 kg
[~2022-11-19 06:20] MED LIST changes: +CINA30TA5 PO; +CLON1PAT12 TD; -FURO80TA87 MT; -HYDR-4133 MT; +HYDR-4135 PO; -LABE100T9 MT; +LABE300T36 PO; +LEVO300T6 PO; +LOSA100T32 PO; -LOSA50TA41 PO; +PRAV80TA19 PO; -SPIR25TA MT
[2022-11-19 07:18] LABS: BG BASE EXCESS 4.5 mmol/L (-2.0-2.0); BG CARBOXYHEMOGLOBIN 0.8 % (0.5-1.5); BG METHEMOGLOBIN 0.1 % (0.0-1.5); BG OXYHEMOGLOBIN 95.1 % (94.0-97.0); BG PCO2 37.2 mmHg (35.0-45.0); BG PH 7.495 (7.350-7.450); BG PO2 85.9 mmHg (75.0-100.0); BG SAMPLE SITE RIGHT RADIAL; BG TOTAL HEMOGLOBIN 9.1 g/dL (12.0-18.0); BG VENT MODE ROOM AIR
[2022-11-19 09:10] LABS: CHLORIDE 99 mEq/L (98-107)
[2022-11-19 09:14] LABS: BASOPHILS % 0.5 % (0.0-2.0); EOSINOPHILS % 4.8 % (0.0-5.0); HEMOGLOBIN. 8.3 g/dL (12.0-16.0); LYMPHOCYTES % 14.9 % (20.0-50.0); MEAN CORPUSCULAR HEMOGLOBIN 29.6 pg (28.0-32.0); MEAN PLATELET VOLUME 7.2 fl (7.4-10.4); MONOCYTES % 11.6 % (2.0-8.0); NEUTROPHILS % 68.2 % (40.0-76.0); PLATELET 264 x1000/uL (130-400); RED BLOOD CELL COUNT 2.81 mill/uL (4.2-5.4); RED CELL DISTRIBUTION WIDTH 18.8 % (11.6-14.6)
[2022-11-19] MEDS ORDERED: IOHEXOL-350 100 ML BOTTLE ONE (14:38)
[2022-11-19] MEDS ORDERED: HYDRALAZINE 20MG/ML VIAL IV NR (16:15)
[2022-11-19 17:51] VITALS: BP 182/90
== END 2022-11-19 19:10 | disposition short-term general hospital (02) ==
LOC: ER 06:20
DX: R06.02 Shortness of breath (principal); R07.89 Other chest pain; R94.39 Abnormal result of other cardiovascular function study; E11.22 Type 2 diabetes mellitus with diabetic chronic kidney disease; I13.2 Hypertensive heart and chronic kidney disease with heart failure and with stage 5 chronic kidney disease, or end stage renal disease; I50.9 Heart failure, unspecified; N18.6 End stage renal disease; Z20.822 Contact with and (suspected) exposure to COVID-19; Z99.2 Dependence on renal dialysis; Z88.8 Allergy status to other drugs, medicaments and biological substances; Z91.018 Allergy to other foods; Z88.5 Allergy status to narcotic agent
CPT/HCPCS: 36415; 36600; 71045; 71275; 74177; 80053; 82375; 82805; 82962; 83880; 84484; 85025; 85379; 87426; 87804; 93005; 96374; 99285; C9803; J0360; Q9967; Z7610

== ENCOUNTER 2022-11-27 18:23 | Emergency (ER) | payer OTHER ==
[~2022-11-27] VITALS: Ht 160 cm; Wt 67.0 kg
[2022-11-27] MEDS ORDERED: SODIUM CHLORIDE 0.9% 1,000 ML IV ONE ×2 (20:30)
[2022-11-27 20:57] LABS: BASOPHILS % 0.4 % (0.0-2.0); EOSINOPHILS % 1.1 % (0.0-5.0); HEMATOCRIT. 27.9 % (36.0-48.0); HEMOGLOBIN. 9.3 g/dL (12.0-16.0); LYMPHOCYTES % 14.6 % (20.0-50.0); MEAN CORPUSCULAR HEMOGLOBIN 29.7 pg (28.0-32.0); MEAN CORPUSCULAR VOLUME 89.5 fL (81.0-99.0); MEAN PLATELET VOLUME 7.4 fl (7.4-10.4); MONOCYTES % 13.1 % (2.0-8.0); NEUTROPHILS % 70.8 % (40.0-76.0); PLATELET 211 x1000/uL (130-400); RED BLOOD CELL COUNT 3.12 mill/uL (4.2-5.4); RED CELL DISTRIBUTION WIDTH 17.9 % (11.6-14.6)
[2022-11-27 21:10] LABS: CHLORIDE 91 mEq/L (98-107)
[2022-11-27 21:33] LABS: BETA HYDROXYBUTYRATE 1.7 mMol/L (0.0-0.3)
[2022-11-27 22:32] LABS: BG BASE EXCESS -2.6 mmol/L (-2.0-2.0); BG CARBOXYHEMOGLOBIN 1.2 % (0.5-1.5); BG DEOXYHEMOGLOBIN 6.9 % (0.0-5.0); BG FRACTION INSPIRED OXYGEN 21; BG HCO3 ACT 22.6 mmol/L (22.0-26.0); BG METHEMOGLOBIN 0.2 % (0.0-1.5); BG OXYHEMOGLOBIN 91.7 % (94.0-97.0); BG PCO2 40.8 mmHg (35.0-45.0); BG PH 7.362 (7.350-7.450); BG PO2 71.9 mmHg (75.0-100.0); BG SAMPLE SITE LEFT RADIAL; BG TOTAL HEMOGLOBIN 11.7 g/dL (12.0-18.0); BG VENT MODE ROOM AIR
[2022-11-27] MEDS ORDERED: INSULIN REGULAR (HUMULIN R) 300UNITS/3ML VIAL IV NR (22:40)
[2022-11-28 00:40] VITALS: BP 183/95
[2022-11-28] MEDS ORDERED: DEXTROSE 50% WATER 50ML SYRINGE IV ONE (02:07)
[2022-11-28] MEDS ORDERED: DEXTROSE 50% WATER 50ML SYRINGE IV NR (02:15)
== END 2022-11-28 02:47 | disposition short-term general hospital (02) ==
LOC: ER 18:23
DX: E11.65 Type 2 diabetes mellitus with hyperglycemia (principal); I13.2 Hypertensive heart and chronic kidney disease with heart failure and with stage 5 chronic kidney disease, or end stage renal disease; E11.22 Type 2 diabetes mellitus with diabetic chronic kidney disease; N18.6 End stage renal disease; I50.9 Heart failure, unspecified; Z99.2 Dependence on renal dialysis; Z88.6 Allergy status to analgesic agent; Z88.8 Allergy status to other drugs, medicaments and biological substances; Z91.018 Allergy to other foods; Z20.822 Contact with and (suspected) exposure to COVID-19
CPT/HCPCS: 36415; 36600; 71045; 80053; 82010; 82375; 82805; 82962; 83880; 85025; 87426; 93005; 96361; 96374; 96375; 99291; C9803; J1815; J7030

== ENCOUNTER 2023-01-31 16:34 | Inpatient (IN) | payer OTHER ==
[2023-01-31] VITALS (9 sets, daily range): BP systolic 178–212; BP diastolic 85–104
[~2023-01-31] VITALS: Ht 177.8 cm; Wt 73.9 kg
[~2023-01-31 16:34] MED LIST changes: -LOSA100T32 PO; +LOSA100T33 PO
[2023-01-31] MEDS ORDERED: HYDRALAZINE 20MG/ML VIAL IV ONE (17:00)
[2023-01-31] MEDS ORDERED: ACETAMINOPHEN 325MG TABLET PO ONE (17:00)
[2023-01-31 17:42] LABS: BASOPHILS % 0.9 % (0.0-2.0); EOSINOPHILS % 4.8 % (0.0-5.0); HEMATOCRIT. 37.7 % (36.0-48.0); HEMOGLOBIN. 12.7 g/dL (12.0-16.0); LYMPHOCYTES % 21.7 % (20.0-50.0); MEAN CORPUSCULAR HEMOGLOBIN 29.8 pg (28.0-32.0); MEAN CORPUSCULAR VOLUME 88.5 fL (81.0-99.0); MEAN PLATELET VOLUME 7.6 fl (7.4-10.4); MONOCYTES % 10.5 % (2.0-8.0); NEUTROPHILS % 62.1 % (40.0-76.0); PLATELET 155 x1000/uL (130-400); RED BLOOD CELL COUNT 4.27 mill/uL (4.2-5.4); RED CELL DISTRIBUTION WIDTH 18.4 % (11.6-14.6)
[2023-01-31 17:50] LABS: CHLORIDE 96 mEq/L (98-107)
[2023-01-31 17:54] LABS: PARTIAL THROMBOPLASTIN TIME 26.9 sec (23.4-31.0); PROTHROMBIN TIME 10.7 sec (9.6-11.0)
[2023-01-31 18:17] LABS: ETHANOL BLOOD < 10 mg/dL
[2023-01-31] MEDS ORDERED: ASPIRIN 325MG EC TABLET PO ONE (18:30)
[2023-01-31] MEDS ORDERED: NITROGLYCERIN 50MG PREMIX 250 ML IV ONE (19:45)
[2023-01-31] MEDS ORDERED: HYDRALAZINE 20MG/ML VIAL IV NR (20:00)
[2023-01-31] MEDS ORDERED: ONDANSETRON HCL 4MG/2ML INJ IV PRN (20:00)
[2023-01-31] MEDS ORDERED: IPRATROPIUM/ALBUTEROL 0.5-3(2.5)MG/3ML NEB NEB PRN (20:00)
[2023-01-31] MEDS: NITROGLYCERIN 50 MG PREMIX 250 ML IV PRN (20:55)
[2023-01-31] MEDS: BLOOD SUGAR DIAGNOSTIC STRIP TEST SCH (21:00)
[2023-01-31] MEDS: INSULIN LISPRO 100 UNITS/ML SUBCUT SCH (22:25)
[2023-01-31] MEDS: ENOXAPARIN 30MG/0.3ML SYR SUBCUT SCH (22:25)
[2023-01-31] MEDS: ACETAMINOPHEN 325MG TABLET PO PRN (23:27)
[2023-01-31 23:33] LABS: PHOSPHORUS 3.5 mg/dL (2.5-4.9)
[2023-02-01] VITALS (93 sets, daily range): BP systolic 90–216; BP diastolic 49–141
[2023-02-01] MEDS ORDERED: HYDRALAZINE 20MG/ML VIAL IV SCH
[2023-02-01 00:42] LABS: CREATINE KINASE MB FRACTION 3.9 ng/mL (0.5-3.6)
[2023-02-01] MEDS ORDERED: KETOROLAC 15MG/ML VIAL IV NR (00:45)
[2023-02-01] MEDS ORDERED: DIPHENHYDRAMINE 50MG/ML VIAL IV NR (01:15)
[2023-02-01] MEDS ORDERED: FURO80TA3 PO (03:17)
[2023-02-01] MEDS ORDERED: *PATIENT'S OWN MEDICATION STORAGE XX SCH (03:30)
[2023-02-01] MEDS: HYDRALAZINE 20MG/ML VIAL IV PRN (05:41)
[2023-02-01 05:50] LABS: BASOPHILS % 0.8 % (0.0-2.0); EOSINOPHILS % 6.5 % (0.0-5.0); HEMATOCRIT. 31.9 % (36.0-48.0); HEMOGLOBIN. 10.9 g/dL (12.0-16.0); LYMPHOCYTES % 30.6 % (20.0-50.0); MEAN CORPUSCULAR HEMOGLOBIN 29.9 pg (28.0-32.0); MEAN CORPUSCULAR VOLUME 87.5 fL (81.0-99.0); MEAN PLATELET VOLUME 7.3 fl (7.4-10.4); MONOCYTES % 11.9 % (2.0-8.0); NEUTROPHILS % 50.2 % (40.0-76.0); PLATELET 140 x1000/uL (130-400); RED BLOOD CELL COUNT 3.64 mill/uL (4.2-5.4); RED CELL DISTRIBUTION WIDTH 18.6 % (11.6-14.6)
[2023-02-01 06:04] LABS: CHLORIDE 97 mEq/L (98-107)
[2023-02-01 06:20] LABS: CREATINE KINASE 147 IU/L (26-192); CREATINE KINASE MB FRACTION 3.8 ng/mL (0.5-3.6); HDL CHOLESTEROL 75 mg/dL (40-59); LDL CHOLESTEROL 62 mg/dL (5-100); T4 FREE 1.05 ng/dL (0.76-1.46)
[2023-02-01] MEDS: BLOOD SUGAR DIAGNOSTIC STRIP TEST SCH ×4 (07:57→20:20)
[2023-02-01] MEDS: PANTOPRAZOLE SODIUM 40 MG/VIAL IV SCH (08:19)
[2023-02-01] MEDS: ASPIRIN 81MG EC TABLET PO SCH (08:20)
[2023-02-01] MEDS: INSULIN LISPRO 100 UNITS/ML SUBCUT SCH ×4 (08:22→20:39)
[2023-02-01] MEDS: NITROGLYCERIN 50 MG PREMIX 250 ML IV PRN ×2 (08:34→18:05)
[2023-02-01] MEDS: CLONIDINE 0.1MG TABLET PO PRN (08:35)
[2023-02-01] MEDS ORDERED: AMLODIPINE 5MG TABLET PO SCH (09:00)
[2023-02-01] MEDS ORDERED: FUROSEMIDE 40MG/4ML VIAL IVP SCH (09:00)
[2023-02-01] MEDS ORDERED: DIPHENHYDRAMINE 12.5MG/5ML UDC PO NR (10:00)
[2023-02-01] MEDS: DOXAZOSIN MESYLATE 2MG TABLET PO SCH ×2 (10:30→20:38)
[2023-02-01] MEDS: ACETAMINOPHEN 325MG TABLET PO PRN (10:30)
[2023-02-01 14:31] LABS: HEPATITIS B SURFACE ANTIGEN NEGATIVE
[2023-02-01] MEDS: HYDRALAZINE HCL 50MG TABLET PO SCH ×2 (14:41→22:58)
[2023-02-01 15:26] LABS: *AMPHETAMINES SCREEN URINE NEGATIVE (NEGATIVE); *BARBITURATES SCREEN URINE NEGATIVE (NEGATIVE); *BENZODIAZEPINES SCREEN URINE NEGATIVE (NEGATIVE); *COCAINE SCREEN URINE NEGATIVE (NEGATIVE); CANNABINOID URINE SCREEN NEGATIVE (NEGATIVE); METHADONE URINE SCREEN NEGATIVE (NEGATIVE); OPIATES URINE SCREEN NEGATIVE (NEGATIVE); PHENCYCLIDINE URINE SCREEN NEGATIVE (NEGATIVE)
[2023-02-01] MEDS: CLONIDINE 0.1MG TABLET PO SCH (17:23)
[2023-02-01] MEDS: ENOXAPARIN 30MG/0.3ML SYR SUBCUT SCH (20:41)
[2023-02-01] MEDS: DIPHENHYDRAMINE 12.5MG/5ML UDC PO PRN (20:41)
[2023-02-01] MEDS ORDERED: MEDICATION NOT ON FORMULARY EA (Pravastatin Sodium 80 MG) PO SCH (21:00)
[2023-02-02] VITALS (90 sets, daily range): BP systolic 110–193; BP diastolic 58–136
[2023-02-02] MEDS: HYDRALAZINE 20MG/ML VIAL IV PRN ×2 (01:23→20:49)
[2023-02-02] MEDS ORDERED: MELATONIN 3MG TABLET PO NR (01:30)
[2023-02-02] MEDS: ACETAMINOPHEN 325MG TABLET PO PRN ×3 (02:34→04:51)
[2023-02-02] MEDS: NITROGLYCERIN 50MG PREMIX 250 ML IV PRN ×4 (02:37→15:18)
[2023-02-02] MEDS: CLONIDINE 0.1MG TABLET PO PRN (04:30)
[2023-02-02] MEDS ORDERED: DIPHENHYDRAMINE 50MG/ML VIAL IV NR (04:45)
[2023-02-02] MEDS: DIPHENHYDRAMINE 12.5MG/5ML UDC PO PRN ×2 (04:49→04:58)
[2023-02-02] MEDS: HYDRALAZINE HCL 50MG TABLET PO SCH (05:08)
[2023-02-02 06:37] LABS: BASOPHILS % 0.3 % (0.0-2.0); EOSINOPHILS % 2.7 % (0.0-5.0); HEMATOCRIT. 27.9 % (36.0-48.0); HEMOGLOBIN. 9.5 g/dL (12.0-16.0); LYMPHOCYTES % 13.6 % (20.0-50.0); MEAN CORPUSCULAR HEMOGLOBIN 30.6 pg (28.0-32.0); MEAN CORPUSCULAR VOLUME 89.6 fL (81.0-99.0); MEAN PLATELET VOLUME 7.5 fl (7.4-10.4); MONOCYTES % 12.5 % (2.0-8.0); NEUTROPHILS % 70.9 % (40.0-76.0); PLATELET 121 x1000/uL (130-400); RED BLOOD CELL COUNT 3.12 mill/uL (4.2-5.4); RED CELL DISTRIBUTION WIDTH 17.8 % (11.6-14.6)
[2023-02-02] MEDS: BLOOD SUGAR DIAGNOSTIC STRIP TEST SCH ×4 (07:50→20:50)
[2023-02-02] MEDS ORDERED: LEVOTHYROXINE SODIUM 0.3 MG PO SCH (09:00)
[2023-02-02] MEDS ORDERED: DIPHENHYDRAMINE 25MG CAPSULE PO NR (09:00)
[2023-02-02] MEDS ORDERED: INSULIN GLARGINE 100 UNITS/ML SUBCUT NR (09:00)
[2023-02-02] MEDS ORDERED: LORAZEPAM 2MG/ML CPJ IV NR (09:00)
[2023-02-02] MEDS: LEVOTHYROXINE SODIUM 150MCG TABLET PO SCH (09:07)
[2023-02-02] MEDS: AMLODIPINE 10MG TABLET PO SCH (09:08)
[2023-02-02] MEDS: CLONIDINE 0.1MG TABLET PO SCH ×2 (09:08→17:00)
[2023-02-02] MEDS: PANTOPRAZOLE SODIUM 40 MG/VIAL IV SCH (09:08)
[2023-02-02] MEDS: DOXAZOSIN MESYLATE 2MG TABLET PO SCH ×2 (09:08→20:49)
[2023-02-02] MEDS: ASPIRIN 81MG EC TABLET PO SCH (09:08)
[2023-02-02] MEDS: INSULIN LISPRO 100 UNITS/ML SUBCUT SCH ×4 (09:11→20:50)
[2023-02-02] MEDS: LABETALOL HCL 200MG TABLET PO SCH ×2 (11:36→20:48)
[2023-02-02] MEDS ORDERED: INSULIN REGULAR (HUMULIN R) 300UNITS/3ML VIAL IV NR (12:00)
[2023-02-02] MEDS: HYDRALAZINE HCL 100MG TABLET PO SCH ×2 (13:11→22:40)
[2023-02-02] MEDS: DEXTROSE 50% WATER 50ML SYRINGE IV PRN ×2 (17:43→20:47)
[2023-02-02] MEDS: ENOXAPARIN 30MG/0.3ML SYR SUBCUT SCH (20:46)
[2023-02-03] VITALS (49 sets, daily range): BP systolic 103–199; BP diastolic 52–99
[2023-02-03] MEDS: DIPHENHYDRAMINE 50MG/ML VIAL IV PRN (03:52)
[2023-02-03] MEDS: CLONIDINE 0.1MG TABLET PO PRN ×2 (03:52→19:33)
[2023-02-03 05:36] LABS: BASOPHILS % 0.5 % (0.0-2.0); EOSINOPHILS % 6.7 % (0.0-5.0); HEMATOCRIT. 31.8 % (36.0-48.0); HEMOGLOBIN. 10.8 g/dL (12.0-16.0); LYMPHOCYTES % 23.4 % (20.0-50.0); MEAN CORPUSCULAR HEMOGLOBIN 29.8 pg (28.0-32.0); MEAN CORPUSCULAR VOLUME 87.7 fL (81.0-99.0); MEAN PLATELET VOLUME 7.2 fl (7.4-10.4); MONOCYTES % 12.2 % (2.0-8.0); NEUTROPHILS % 57.2 % (40.0-76.0); PLATELET 136 x1000/uL (130-400); RED BLOOD CELL COUNT 3.62 mill/uL (4.2-5.4); RED CELL DISTRIBUTION WIDTH 18.3 % (11.6-14.6)
[2023-02-03 06:07] LABS: PHOSPHORUS 5.3 mg/dL (2.5-4.9)
[2023-02-03] MEDS: HYDRALAZINE HCL 100MG TABLET PO SCH ×3 (06:54→20:47)
[2023-02-03] MEDS: HYDRALAZINE 20MG/ML VIAL IV PRN ×3 (06:54→22:19)
[2023-02-03] MEDS ORDERED: LIDOCAINE HCL 1% 30ML VIAL (10MG/ML) ONE (07:47)
[2023-02-03] MEDS: BLOOD SUGAR DIAGNOSTIC STRIP TEST SCH ×4 (07:50→21:18)
[2023-02-03] MEDS: PANTOPRAZOLE SODIUM 40 MG/VIAL IV SCH (09:49)
[2023-02-03] MEDS: ASPIRIN 81MG EC TABLET PO SCH (09:51)
[2023-02-03] MEDS: CLONIDINE 0.1MG TABLET PO SCH ×2 (09:51→17:00)
[2023-02-03] MEDS: AMLODIPINE 10MG TABLET PO SCH (09:51)
[2023-02-03] MEDS: INSULIN LISPRO 100 UNITS/ML SUBCUT SCH ×3 (09:52→21:14)
[2023-02-03] MEDS: LABETALOL HCL 200MG TABLET PO SCH ×2 (09:52→21:16)
[2023-02-03] MEDS: LEVOTHYROXINE SODIUM 150MCG TABLET PO SCH (09:52)
[2023-02-03] MEDS: DOXAZOSIN MESYLATE 2MG TABLET PO SCH ×2 (09:53→20:47)
[2023-02-03] MEDS: ACETAMINOPHEN 325MG TABLET PO PRN ×2 (13:59→21:15)
[2023-02-03] MEDS: ENOXAPARIN 30MG/0.3ML SYR SUBCUT SCH (21:19)
[2023-02-03] MEDS ORDERED: INSULIN GLARGINE 100 UNITS/ML SUBCUT SCH (22:00)
[2023-02-04] VITALS (96 sets, daily range): BP systolic 116–235; BP diastolic 53–114
[2023-02-04] MEDS: CLONIDINE 0.1MG TABLET PO PRN ×2 (00:17→14:30)
[2023-02-04] MEDS: ACETAMINOPHEN 325MG TABLET PO PRN (00:22)
[2023-02-04] MEDS: NITROGLYCERIN 50MG PREMIX 250 ML IV PRN (01:33)
[2023-02-04 05:06] LABS: BASOPHILS % 0.4 % (0.0-2.0); EOSINOPHILS % 5.3 % (0.0-5.0); HEMATOCRIT. 29.8 % (36.0-48.0); HEMOGLOBIN. 10.2 g/dL (12.0-16.0); LYMPHOCYTES % 17.7 % (20.0-50.0); MEAN PLATELET VOLUME 7.6 fl (7.4-10.4); MONOCYTES % 10.3 % (2.0-8.0); NEUTROPHILS % 66.3 % (40.0-76.0); PLATELET 132 x1000/uL (130-400); RED BLOOD CELL COUNT 3.39 mill/uL (4.2-5.4); RED CELL DISTRIBUTION WIDTH 18.5 % (11.6-14.6)
[2023-02-04] MEDS: BLOOD SUGAR DIAGNOSTIC STRIP TEST SCH ×4 (06:09→21:06)
[2023-02-04] MEDS: HYDRALAZINE HCL 100MG TABLET PO SCH ×3 (06:18→21:08)
[2023-02-04] MEDS: INSULIN LISPRO 100 UNITS/ML SUBCUT SCH ×6 (06:19→21:00)
[2023-02-04] MEDS: LEVOTHYROXINE SODIUM 150MCG TABLET PO SCH (06:26)
[2023-02-04] MEDS: INSULIN GLARGINE 100 UNITS/ML SUBCUT SCH ×3 (07:45→18:32)
[2023-02-04] MEDS: PANTOPRAZOLE SODIUM 40 MG/VIAL IV SCH (08:56)
[2023-02-04] MEDS: AMLODIPINE 10MG TABLET PO SCH (08:57)
[2023-02-04] MEDS: DOXAZOSIN MESYLATE 2MG TABLET PO SCH ×2 (08:57→21:09)
[2023-02-04] MEDS: ASPIRIN 81MG EC TABLET PO SCH (08:58)
[2023-02-04] MEDS: CLONIDINE 0.1MG TABLET PO SCH ×2 (08:58→16:51)
[2023-02-04] MEDS: LABETALOL HCL 300MG TABLET PO SCH ×2 (10:01→21:09)
[2023-02-04] MEDS: HYDRALAZINE 20MG/ML VIAL IV PRN ×2 (17:43→23:43)
[2023-02-04] MEDS: ENOXAPARIN 30MG/0.3ML SYR SUBCUT SCH (21:08)
[2023-02-05] VITALS (90 sets, daily range): BP systolic 111–206; BP diastolic 54–92
[2023-02-05] MEDS: NITROGLYCERIN 50MG PREMIX 250 ML IV PRN (01:11)
[2023-02-05] MEDS: ACETAMINOPHEN 325MG TABLET PO PRN (02:09)
[2023-02-05 05:40] LABS: HEMATOCRIT. 28.6 % (36.0-48.0); HEMOGLOBIN. 9.7 g/dL (12.0-16.0); MEAN CORPUSCULAR HEMOGLOBIN 29.8 pg (28.0-32.0); MEAN CORPUSCULAR VOLUME 87.7 fL (81.0-99.0); MEAN PLATELET VOLUME 7.4 fl (7.4-10.4); PLATELET 121 x1000/uL (130-400); RED BLOOD CELL COUNT 3.26 mill/uL (4.2-5.4)
[2023-02-05] MEDS: HYDRALAZINE HCL 100MG TABLET PO SCH ×3 (06:10→21:00)
[2023-02-05] MEDS: LEVOTHYROXINE SODIUM 150MCG TABLET PO SCH (06:10)
[2023-02-05] MEDS: INSULIN LISPRO 100 UNITS/ML SUBCUT SCH ×7 (06:11→21:02)
[2023-02-05] MEDS: BLOOD SUGAR DIAGNOSTIC STRIP TEST SCH ×4 (06:12→20:52)
[2023-02-05 06:52] LABS: PLATELET ESTIMATE SLIGHTLY DECREASED
[2023-02-05] MEDS: PANTOPRAZOLE SODIUM 40 MG/VIAL IV SCH (09:07)
[2023-02-05] MEDS: ASPIRIN 81MG EC TABLET PO SCH (09:07)
[2023-02-05] MEDS: DOXAZOSIN MESYLATE 2MG TABLET PO SCH ×2 (09:08→21:00)
[2023-02-05] MEDS: CLONIDINE 0.1MG TABLET PO SCH ×2 (09:09→17:28)
[2023-02-05] MEDS: LABETALOL HCL 300MG TABLET PO SCH ×2 (09:11→21:03)
[2023-02-05] MEDS: INSULIN GLARGINE 100 UNITS/ML SUBCUT SCH ×2 (09:20→17:00)
[2023-02-05] MEDS: AMLODIPINE 10MG TABLET PO SCH (09:29)
[2023-02-05] MEDS: NICARDIPINE 100 MG in SODIUM CHLORIDE 0.9% 60 ML IV PRN ×2 (10:55→21:10)
[2023-02-05] MEDS ORDERED: ONDANSETRON HCL 4MG/2ML INJ ONE (15:19)
[2023-02-05] MEDS ORDERED: PROPOFOL 200MG/20ML VIAL IV ONE (15:19)
[2023-02-05] MEDS ORDERED: DEXAMETHASONE 4MG/ML 1ML VIAL ONE (15:19)
[2023-02-05] MEDS ORDERED: TETRACAINE/BENZOCAINE/BUTAMBEN 20 GM SPRAY MM ONE (15:33)
[2023-02-05] MEDS ORDERED: LIDOCAINE 2% 6ML GLYDO MM ONE (15:34)
[2023-02-05] MEDS: ENOXAPARIN 30MG/0.3ML SYR SUBCUT SCH (21:00)
[2023-02-06] VITALS (73 sets, daily range): BP systolic 116–173; BP diastolic 58–132
[2023-02-06] MEDS: CLONIDINE 0.1MG TABLET PO PRN ×3 (00:17→13:31)
[2023-02-06 04:31] LABS: BASOPHILS % 0.2 % (0.0-2.0); EOSINOPHILS % 0.1 % (0.0-5.0); HEMATOCRIT. 29.8 % (36.0-48.0); HEMOGLOBIN. 10.1 g/dL (12.0-16.0); MEAN CORPUSCULAR HEMOGLOBIN 30.1 pg (28.0-32.0); MEAN CORPUSCULAR VOLUME 88.5 fL (81.0-99.0); MONOCYTES % 4.1 % (2.0-8.0); NEUTROPHILS % 82.6 % (40.0-76.0); PLATELET 147 x1000/uL (130-400); RED BLOOD CELL COUNT 3.37 mill/uL (4.2-5.4); RED CELL DISTRIBUTION WIDTH 17.8 % (11.6-14.6)
[2023-02-06] MEDS: HYDRALAZINE 20MG/ML VIAL IV PRN (04:50)
[2023-02-06] MEDS: BLOOD SUGAR DIAGNOSTIC STRIP TEST SCH ×4 (06:11→21:18)
[2023-02-06] MEDS: LEVOTHYROXINE SODIUM 150MCG TABLET PO SCH (06:20)
[2023-02-06] MEDS: HYDRALAZINE HCL 100MG TABLET PO SCH ×3 (06:20→21:18)
[2023-02-06] MEDS: CLONIDINE 0.1MG TABLET PO SCH (06:20)
[2023-02-06] MEDS: INSULIN LISPRO 100 UNITS/ML SUBCUT SCH ×8 (06:21→21:20)
[2023-02-06] MEDS: ASPIRIN 81MG EC TABLET PO SCH (08:04)
[2023-02-06] MEDS: AMLODIPINE 10MG TABLET PO SCH (08:04)
[2023-02-06] MEDS: LABETALOL HCL 300MG TABLET PO SCH ×2 (08:05→21:18)
[2023-02-06] MEDS: DOXAZOSIN MESYLATE 2MG TABLET PO SCH ×2 (08:05→21:17)
[2023-02-06] MEDS: FAMOTIDINE 20MG TABLET PO SCH (08:05)
[2023-02-06] MEDS ORDERED: INSULIN GLARGINE 100 UNITS/ML SUBCUT SCH ×2 (09:00→10:00)
[2023-02-06] MEDS ORDERED: LACTULOSE 20G/30ML UDC PO NR (10:00)
[2023-02-06] MEDS ORDERED: VANCOMYCIN 1500MG in DEXTROSE 5% WATER 250ML IV NR (10:30)
[2023-02-06] MEDS: NICARDIPINE 100 MG in SODIUM CHLORIDE 0.9% 60 ML IV PRN (10:47)
[2023-02-06] MEDS ORDERED: INSULIN LISPRO 100 UNITS/ML SUBCUT SCH (11:30)
[2023-02-06] MEDS ORDERED: INSULIN LISPRO 100 UNITS/ML SUBCUT NR ×2 (12:00→13:30)
[2023-02-06] MEDS: CLONIDINE 0.2MG TABLET PO SCH ×2 (14:00→21:18)
[2023-02-06] MEDS ORDERED: CEFTRIAXONE 2GM/50ML (ADDEASE) 50 ML IV SCH (15:30)
[2023-02-06] MEDS: CEFTRIAXONE 2 G in DEXTROSE 5% WATER 50 ML IV SCH (18:57)
[2023-02-06] MEDS: ENOXAPARIN 30MG/0.3ML SYR SUBCUT SCH (21:19)
[2023-02-06] MEDS: INSULIN GLARGINE 100 UNITS/ML SUBCUT SCH (21:21)
[2023-02-07] VITALS (64 sets, daily range): BP systolic 118–197; BP diastolic 28–92
[2023-02-07] MEDS: NICARDIPINE 100 MG in SODIUM CHLORIDE 0.9% 60 ML IV PRN ×2 (01:43→23:40)
[2023-02-07] MEDS: ACETAMINOPHEN 325MG TABLET PO PRN (02:39)
[2023-02-07] MEDS: DIPHENHYDRAMINE 50MG/ML VIAL IV PRN (04:36)
[2023-02-07] MEDS: HYDRALAZINE HCL 100MG TABLET PO SCH ×3 (05:32→23:02)
[2023-02-07] MEDS: CLONIDINE 0.2MG TABLET PO SCH ×3 (05:37→23:04)
[2023-02-07] MEDS: DEXTROSE 50% WATER 50ML SYRINGE IV PRN (05:37)
[2023-02-07 05:43] LABS: BASOPHILS % 0.8 % (0.0-2.0); EOSINOPHILS % 6.7 % (0.0-5.0); HEMATOCRIT. 28.1 % (36.0-48.0); HEMOGLOBIN. 9.6 g/dL (12.0-16.0); LYMPHOCYTES % 23.9 % (20.0-50.0); MEAN CORPUSCULAR HEMOGLOBIN 30.1 pg (28.0-32.0); MEAN CORPUSCULAR VOLUME 87.9 fL (81.0-99.0); MEAN PLATELET VOLUME 7.7 fl (7.4-10.4); MONOCYTES % 11.6 % (2.0-8.0); PLATELET 158 x1000/uL (130-400); RED BLOOD CELL COUNT 3.19 mill/uL (4.2-5.4); RED CELL DISTRIBUTION WIDTH 17.9 % (11.6-14.6)
[2023-02-07] MEDS: BLOOD SUGAR DIAGNOSTIC STRIP TEST SCH ×5 (05:49→21:00)
[2023-02-07] MEDS: LEVOTHYROXINE SODIUM 150MCG TABLET PO SCH (05:49)
[2023-02-07] MEDS: INSULIN LISPRO 100 UNITS/ML SUBCUT SCH ×9 (05:50→21:56)
[2023-02-07] MEDS: LABETALOL HCL 300MG TABLET PO SCH ×2 (07:39→21:47)
[2023-02-07] MEDS: AMLODIPINE 10MG TABLET PO SCH (07:39)
[2023-02-07] MEDS: DOXAZOSIN MESYLATE 2MG TABLET PO SCH ×2 (07:40→21:48)
[2023-02-07] MEDS: ASPIRIN 81MG EC TABLET PO SCH (07:40)
[2023-02-07] MEDS ORDERED: LIDOCAINE HCL 1% 20ML VIAL (Pyxis) INJ ONE (08:13)
[2023-02-07] MEDS ORDERED: VERAPAMIL HCL 2.5 MG/1 ML 2ML VIAL IV ONE (08:39)
[2023-02-07] MEDS ORDERED: IODIXANOL 320MG/ML 100 ML BOTTLE IV ONE (08:54)
[2023-02-07] MEDS ORDERED: MIDAZOLAM HCL 2 MG/2 ML VIAL ONE (09:05)
[2023-02-07] MEDS ORDERED: FENTANYL CITRATE/PF 50MCG/ML 2ML VIAL ONE (09:06)
[2023-02-07] MEDS: INSULIN GLARGINE 100 UNITS/ML SUBCUT SCH ×2 (09:12→11:11)
[2023-02-07] MEDS ORDERED: HEPARIN 1000 UNITS/ML 10ML ONE (09:19)
[2023-02-07] MEDS ORDERED: ACETAMINOPHEN 325MG TABLET PO PRN (09:45)
[2023-02-07] MEDS ORDERED: ATROPINE SULFATE 1MG/10ML SYR IV PRN (09:45)
[2023-02-07] MEDS ORDERED: NITROGLYCERIN 0.4MG TABLET SL SL PRN (12:30)
[2023-02-07] MEDS: CEFTRIAXONE 2 G in DEXTROSE 5% WATER 50 ML IV SCH (15:30)
[2023-02-07] MEDS: HYDRALAZINE 20MG/ML VIAL IV PRN (16:21)
[2023-02-07] MEDS: CLONIDINE 0.1MG TABLET PO PRN ×2 (16:21→16:22)
[2023-02-07] MEDS: ENOXAPARIN 30MG/0.3ML SYR SUBCUT SCH (21:50)
[2023-02-08] VITALS (64 sets, daily range): BP systolic 124–171; BP diastolic 54–82
[2023-02-08] MEDS: CLONIDINE 0.2MG TABLET PO SCH ×3 (05:23→22:41)
[2023-02-08] MEDS: HYDRALAZINE HCL 100MG TABLET PO SCH ×3 (05:23→22:40)
[2023-02-08 05:50] LABS: BASOPHILS % 0.7 % (0.0-2.0); EOSINOPHILS % 5.8 % (0.0-5.0); HEMATOCRIT. 27.4 % (36.0-48.0); HEMOGLOBIN. 9.2 g/dL (12.0-16.0); LYMPHOCYTES % 29.2 % (20.0-50.0); MEAN CORPUSCULAR HEMOGLOBIN 29.6 pg (28.0-32.0); MEAN CORPUSCULAR VOLUME 88.3 fL (81.0-99.0); MEAN PLATELET VOLUME 7.5 fl (7.4-10.4); MONOCYTES % 10.9 % (2.0-8.0); NEUTROPHILS % 53.4 % (40.0-76.0); PLATELET 162 x1000/uL (130-400); RED CELL DISTRIBUTION WIDTH 17.8 % (11.6-14.6)
[2023-02-08] MEDS: BLOOD SUGAR DIAGNOSTIC STRIP TEST SCH ×4 (07:50→20:46)
[2023-02-08] MEDS: INSULIN LISPRO 100 UNITS/ML SUBCUT SCH ×4 (08:20→20:37)
[2023-02-08] MEDS: LABETALOL HCL 300MG TABLET PO SCH ×2 (09:00→20:35)
[2023-02-08] MEDS: ASPIRIN 81MG EC TABLET PO SCH (09:04)
[2023-02-08] MEDS: FAMOTIDINE 20MG TABLET PO SCH (09:04)
[2023-02-08] MEDS: AMLODIPINE 10MG TABLET PO SCH (09:04)
[2023-02-08] MEDS: LEVOTHYROXINE SODIUM 150MCG TABLET PO SCH (09:05)
[2023-02-08] MEDS: DOXAZOSIN MESYLATE 2MG TABLET PO SCH (09:07)
[2023-02-08] MEDS: CEFTRIAXONE 2 G in DEXTROSE 5% WATER 50 ML IV SCH (15:34)
[2023-02-08] MEDS: INSULIN GLARGINE 100 UNITS/ML SUBCUT SCH ×2 (15:38→22:42)
[2023-02-08] MEDS: NICARDIPINE 100 MG in SODIUM CHLORIDE 0.9% 60 ML IV PRN (19:01)
[2023-02-08] MEDS: DOXAZOSIN MESYLATE 4MG TABLET PO SCH (20:36)
[2023-02-08] MEDS: ENOXAPARIN 30MG/0.3ML SYR SUBCUT SCH (20:46)
[2023-02-09] VITALS (57 sets, daily range): BP systolic 117–169; BP diastolic 52–102
[2023-02-09 05:21] LABS: BASOPHILS % 0.8 % (0.0-2.0); EOSINOPHILS % 5.6 % (0.0-5.0); HEMATOCRIT. 26.9 % (36.0-48.0); HEMOGLOBIN. 9.2 g/dL (12.0-16.0); LYMPHOCYTES % 25.3 % (20.0-50.0); MEAN CORPUSCULAR HEMOGLOBIN 29.9 pg (28.0-32.0); MEAN CORPUSCULAR VOLUME 87.5 fL (81.0-99.0); MEAN PLATELET VOLUME 7.5 fl (7.4-10.4); MONOCYTES % 11.8 % (2.0-8.0); NEUTROPHILS % 56.5 % (40.0-76.0); PLATELET 178 x1000/uL (130-400); RED BLOOD CELL COUNT 3.08 mill/uL (4.2-5.4); RED CELL DISTRIBUTION WIDTH 17.5 % (11.6-14.6)
[2023-02-09] MEDS: CLONIDINE 0.2MG TABLET PO SCH ×3 (05:44→22:04)
[2023-02-09] MEDS: HYDRALAZINE HCL 100MG TABLET PO SCH ×3 (05:44→22:04)
[2023-02-09] MEDS: BLOOD SUGAR DIAGNOSTIC STRIP TEST SCH ×4 (07:50→20:09)
[2023-02-09] MEDS: INSULIN LISPRO 100 UNITS/ML SUBCUT SCH ×4 (08:20→20:32)
[2023-02-09] MEDS: AMLODIPINE 10MG TABLET PO SCH (09:03)
[2023-02-09] MEDS: ASPIRIN 81MG EC TABLET PO SCH (09:03)
[2023-02-09] MEDS: DOXAZOSIN MESYLATE 4MG TABLET PO SCH ×2 (09:03→20:31)
[2023-02-09] MEDS: LABETALOL HCL 300MG TABLET PO SCH ×2 (09:04→20:31)
[2023-02-09] MEDS: MINOXIDIL 2.5MG TABLET PO SCH ×2 (09:08→20:31)
[2023-02-09] MEDS: LEVOTHYROXINE SODIUM 150MCG TABLET PO SCH (09:08)
[2023-02-09] MEDS: INSULIN GLARGINE 100 UNITS/ML SUBCUT SCH ×2 (10:00→20:33)
[2023-02-09] MEDS: NICARDIPINE 100 MG in SODIUM CHLORIDE 0.9% 60 ML IV PRN (11:04)
[2023-02-09] MEDS: SEVELAMER CARBONATE 800 MG TABLET PO SCH ×2 (13:38→17:53)
[2023-02-09] MEDS: CEFTRIAXONE 2 G in DEXTROSE 5% WATER 50 ML IV SCH (15:56)
[2023-02-09] MEDS: ENOXAPARIN 30MG/0.3ML SYR SUBCUT SCH (20:30)
[2023-02-09] MEDS: ACETAMINOPHEN 325MG TABLET PO PRN (22:04)
[2023-02-10] VITALS (78 sets, daily range): BP systolic 107–152; BP diastolic 54–85
[2023-02-10] MEDS: NICARDIPINE 100 MG in SODIUM CHLORIDE 0.9% 60 ML IV PRN (00:31)
[2023-02-10] MEDS: HYDRALAZINE HCL 100MG TABLET PO SCH ×3 (05:56→22:27)
[2023-02-10] MEDS: CLONIDINE 0.2MG TABLET PO SCH ×3 (05:56→22:28)
[2023-02-10 06:43] LABS: HEMATOCRIT 25.2 % (36.0-48.0); HEMOGLOBIN 8.5 g/dL (12.0-16.0); MEAN CORPUSCULAR HEMOGLOBIN 29.5 pg (28.0-32.0); MEAN CORPUSCULAR VOLUME 87.4 fL (81.0-99.0); PLATELET 165 x1000/uL (130-400); RED BLOOD CELL COUNT 2.89 mill/uL (4.2-5.4); RED CELL DISTRIBUTION WIDTH 17.9 % (11.6-14.6)
[2023-02-10] MEDS: INSULIN LISPRO 100 UNITS/ML SUBCUT SCH ×4 (07:34→22:01)
[2023-02-10] MEDS: BLOOD SUGAR DIAGNOSTIC STRIP TEST SCH ×4 (07:34→21:56)
[2023-02-10] MEDS: DEXTROSE 50% WATER 50ML SYRINGE IV PRN (07:45)
[2023-02-10] MEDS: FAMOTIDINE 20MG TABLET PO SCH (08:08)
[2023-02-10] MEDS: DOXAZOSIN MESYLATE 4MG TABLET PO SCH ×2 (08:08→21:48)
[2023-02-10] MEDS: AMLODIPINE 10MG TABLET PO SCH (08:08)
[2023-02-10] MEDS: LABETALOL HCL 300MG TABLET PO SCH ×2 (08:08→21:49)
[2023-02-10] MEDS: SEVELAMER CARBONATE 800 MG TABLET PO SCH ×3 (08:09→17:27)
[2023-02-10] MEDS: ASPIRIN 81MG EC TABLET PO SCH (08:09)
[2023-02-10] MEDS: LEVOTHYROXINE SODIUM 150MCG TABLET PO SCH (08:09)
[2023-02-10] MEDS: MINOXIDIL 2.5MG TABLET PO SCH ×2 (08:09→21:49)
[2023-02-10] MEDS: INSULIN GLARGINE 100 UNITS/ML SUBCUT SCH (10:00)
[2023-02-10] MEDS: CEFTRIAXONE 2 G in DEXTROSE 5% WATER 50 ML IV SCH (15:36)
[2023-02-11] VITALS (54 sets, daily range): BP systolic 99–157; BP diastolic 50–78
[2023-02-11 05:15] LABS: BASOPHILS % 0.8 % (0.0-2.0); EOSINOPHILS % 5.7 % (0.0-5.0); HEMATOCRIT. 23.7 % (36.0-48.0); HEMOGLOBIN. 8.2 g/dL (12.0-16.0); LYMPHOCYTES % 24.3 % (20.0-50.0); MEAN CORPUSCULAR HEMOGLOBIN 30.3 pg (28.0-32.0); MEAN CORPUSCULAR VOLUME 87.5 fL (81.0-99.0); MEAN PLATELET VOLUME 7.7 fl (7.4-10.4); MONOCYTES % 14.3 % (2.0-8.0); NEUTROPHILS % 54.9 % (40.0-76.0); PLATELET 161 x1000/uL (130-400); RED CELL DISTRIBUTION WIDTH 17.4 % (11.6-14.6)
[2023-02-11] MEDS: CLONIDINE 0.2MG TABLET PO SCH ×3 (06:00→21:52)
[2023-02-11] MEDS: HYDRALAZINE HCL 100MG TABLET PO SCH ×3 (06:00→21:38)
[2023-02-11] MEDS: DOXAZOSIN MESYLATE 4MG TABLET PO SCH ×2 (08:30→21:37)
[2023-02-11] MEDS: SEVELAMER CARBONATE 800 MG TABLET PO SCH ×3 (08:30→18:13)
[2023-02-11] MEDS: DIPHENHYDRAMINE 50MG/ML VIAL IV PRN (08:31)
[2023-02-11] MEDS: AMLODIPINE 10MG TABLET PO SCH (08:31)
[2023-02-11] MEDS: ASPIRIN 81MG EC TABLET PO SCH (08:31)
[2023-02-11] MEDS: MINOXIDIL 2.5MG TABLET PO SCH ×2 (08:32→21:39)
[2023-02-11] MEDS: INSULIN LISPRO 100 UNITS/ML SUBCUT SCH ×4 (08:32→21:50)
[2023-02-11] MEDS: BLOOD SUGAR DIAGNOSTIC STRIP TEST SCH ×4 (08:33→21:38)
[2023-02-11] MEDS: LABETALOL HCL 300MG TABLET PO SCH ×2 (08:34→21:34)
[2023-02-11] MEDS: LEVOTHYROXINE SODIUM 150MCG TABLET PO SCH (08:34)
[2023-02-11] MEDS ORDERED: IPRATROPIUM/ALBUTEROL 0.5-3(2.5)MG/3ML NEB HHN PRN (09:45)
[2023-02-11] MEDS: INSULIN GLARGINE 100 UNITS/ML SUBCUT SCH (11:09)
[2023-02-11 12:42] LABS: HEMATOCRIT 29.6 % (36.0-48.0); MEAN CORPUSCULAR HEMOGLOBIN 30.1 pg (28.0-32.0); PLATELET 162 x1000/uL (130-400); RED BLOOD CELL COUNT 3.37 mill/uL (4.2-5.4); RED CELL DISTRIBUTION WIDTH 16.6 % (11.6-14.6)
[2023-02-11 12:50] LABS: HEMOGLOBIN 10.1 g/dL (12.0-16.0)
[2023-02-11] MEDS: CEFTRIAXONE 2 G in DEXTROSE 5% WATER 50 ML IV SCH (15:25)
[2023-02-11] MEDS ORDERED: DEL NIDO ELECTROLYTE-S(PH 7.4) 1,000 ML IV ONE ×2 (17:15)
[2023-02-11] MEDS ORDERED: ASCORBIC ACID 500 MG TABLET PO SCH (21:00)
[2023-02-11] MEDS ORDERED: BISACODYL 10MG SUPP PR PRN (21:00)
[2023-02-11] MEDS ORDERED: DIPHENHYDRAMINE 25MG CAPSULE PO PRN (21:00)
[2023-02-11] MEDS ORDERED: DOCUSATE SODIUM 100MG CAPSULE PO SCH (21:00)
[2023-02-11] MEDS ORDERED: CHLORHEXIDINE GLUCONATE 4% EXTERNAL USE TOP SCH (21:00)
[2023-02-11] MEDS: ALLOPURINOL 300 MG TABLET PO SCH (21:34)
[2023-02-12] VITALS (90 sets, daily range): BP systolic 88–182; BP diastolic 25–83
[2023-02-12] MEDS ORDERED: NICARDIPINE 40MG/200ML PREMIX 200 ML IV PRN (05:00)
[2023-02-12] MEDS ORDERED: INSULIN REGULAR 100U/100ML PMX 100 ML IV PRN (05:00)
[2023-02-12] MEDS ORDERED: EPINEPHRINE 5 MG in DEXT 5% WATER 245 ML IV PRN ×2 (05:00→11:00)
[2023-02-12] MEDS ORDERED: NOREPINEPHRINE 8MG/250ML PMX 250 ML IV PRN (05:00)
[2023-02-12] MEDS ORDERED: DEL NIDO ELECTROLYTE-S(PH 7.4) 1,000 ML IV NR ×2 (05:00)
[2023-02-12] MEDS ORDERED: DOBUTAMINE 250MG PREMIX 250 ML IV PRN (05:00)
[2023-02-12] MEDS ORDERED: THROMBIN (BOVINE) 5000 UNITS/VIAL TOP ONE (05:29)
[2023-02-12] MEDS ORDERED: DOPAMINE 400MG/250ML PREMIX 250 ML IV ONE (05:29)
[2023-02-12] MEDS ORDERED: POLYMYXIN B SULFATE 500000 UNITS/VIAL ONE (05:29)
[2023-02-12] MEDS: ALLOPURINOL 300 MG TABLET PO SCH (05:42)
[2023-02-12] MEDS ORDERED: SEVOFLURANE 250 ML LIQUID INH ONE (05:47)
[2023-02-12] MEDS ORDERED: NICARDIPINE 40MG/200ML PREMIX 200 ML IV ONE (05:48)
[2023-02-12] MEDS ORDERED: HEPARIN 1000 UNITS/ML 10ML ONE ×2 (05:48→09:00)
[2023-02-12 05:49] LABS: HEMATOCRIT 29.1 % (36.0-48.0); HEMOGLOBIN 9.8 g/dL (12.0-16.0); MEAN CORPUSCULAR HEMOGLOBIN 29.6 pg (28.0-32.0); MEAN CORPUSCULAR VOLUME 87.7 fL (81.0-99.0); PLATELET 160 x1000/uL (130-400); RED BLOOD CELL COUNT 3.32 mill/uL (4.2-5.4); RED CELL DISTRIBUTION WIDTH 16.9 % (11.6-14.6)
[2023-02-12] MEDS: HYDRALAZINE HCL 100MG TABLET PO SCH ×3 (06:18→22:12)
[2023-02-12] MEDS: CLONIDINE 0.2MG TABLET PO SCH ×3 (06:18→22:12)
[2023-02-12] MEDS ORDERED: CEFAZOLIN 1000MG/50ML PREMIX IV ONE (07:00)
[2023-02-12] MEDS ORDERED: CEFAZOLIN 2,000 MG in DEXT 5% WATER 100 ML IV NR (07:00)
[2023-02-12 07:45] LABS: PARTIAL THROMBOPLASTIN TIME 28.6 sec (23.4-31.0); PROTHROMBIN TIME 10.8 sec (9.6-11.0)
[2023-02-12] MEDS: LEVOTHYROXINE SODIUM 150MCG TABLET PO SCH (07:50)
[2023-02-12] MEDS: SEVELAMER CARBONATE 800 MG TABLET PO SCH ×3 (08:20→18:14)
[2023-02-12] MEDS: DOXAZOSIN MESYLATE 4MG TABLET PO SCH ×2 (08:42→20:55)
[2023-02-12] MEDS: MINOXIDIL 2.5MG TABLET PO SCH ×2 (08:43→20:55)
[2023-02-12] MEDS: AMLODIPINE 10MG TABLET PO SCH (08:43)
[2023-02-12] MEDS: FAMOTIDINE 20MG TABLET PO SCH (08:43)
[2023-02-12] MEDS: LABETALOL HCL 300MG TABLET PO SCH ×2 (08:43→20:55)
[2023-02-12] MEDS: ASPIRIN 81MG EC TABLET PO SCH (08:43)
[2023-02-12] MEDS ORDERED: LIDOCAINE HCL/PF 2% 20MG/ML 5 ML/VIAL ONE (09:00)
[2023-02-12] MEDS ORDERED: CALCIUM CHLORIDE 1GM/10ML SYR IV ONE (09:00)
[2023-02-12] MEDS ORDERED: HEPARIN 10,000 UNITS/ML VIAL ONE (09:00)
[2023-02-12] MEDS ORDERED: ALBUMIN HUMAN 25GM/100ML (25%) IV ONE (09:00)
[2023-02-12] MEDS ORDERED: AMINOCAPROIC ACID 250 MG/ML 20ML VIAL ONE (09:00)
[2023-02-12] MEDS ORDERED: MANNITOL 20% (20GM/100ML) BAG 500ML PREMIX IV ONE (09:00)
[2023-02-12] MEDS ORDERED: CHLORHEXIDINE GLUCONATE 4% EXTERNAL USE TOP SCH (09:00)
[2023-02-12] MEDS ORDERED: FUROSEMIDE 20MG/2ML VIAL ONE (09:00)
[2023-02-12] MEDS ORDERED: PHENYLEPHRINE HCL 10 MG/ML 1ML (IV VIAL) IV ONE (09:00)
[2023-02-12] MEDS ORDERED: MAGNESIUM SULFATE 5GM/10ML VIAL IV ONE (09:00)
[2023-02-12] MEDS ORDERED: SODIUM POLYSTYRENE SULFONATE 15 G/60 ML BOT PO SCH (10:30)
[2023-02-12] MEDS ORDERED: SODIUM CHLORIDE 0.9% 500 ML IV PRN (11:00)
[2023-02-12] MEDS ORDERED: CALCIUM CHLORIDE 3,000 MG in DEXT 5% WATER 250 ML IV PRN (11:00)
[2023-02-12] MEDS ORDERED: ALBUMIN HUMAN 25GM/100ML (25%) IV PRN (11:00)
[2023-02-12] MEDS ORDERED: MAGNESIUM 1 G PREMIX 100 ML IV PRN (11:00)
[2023-02-12] MEDS ORDERED: KETOROLAC 30MG/ML VIAL IV PRN (11:00)
[2023-02-12] MEDS ORDERED: ALBUMIN HUMAN 12.5G/250ML (5%) IV PRN (11:00)
[2023-02-12] MEDS ORDERED: MAGNESIUM 2 G PREMIX 50 ML IV PRN (11:00)
[2023-02-12] MEDS ORDERED: MAGNESIUM SULFATE 3 GM in DEXT 5% WATER 100 ML IV PRN (11:00)
[2023-02-12] MEDS: BLOOD SUGAR DIAGNOSTIC STRIP TEST SCH ×13 (11:00→23:00)
[2023-02-12 11:30] LABS: BG BASE EXCESS -0.5 mmol/L (-2.0-2.0); BG CARBOXYHEMOGLOBIN 0.8 % (0.5-1.5); BG DEOXYHEMOGLOBIN 3.9 % (0.0-5.0); BG FRACTION INSPIRED OXYGEN 100; BG HCO3 ACT 26.2 mmol/L (22.0-26.0); BG METHEMOGLOBIN 0.2 % (0.0-1.5); BG OXYGEN SATURATION 96.1 % (92.0-98.5); BG OXYHEMOGLOBIN 95.1 % (94.0-97.0); BG PCO2 52.9 mmHg (35.0-45.0); BG PH 7.313 (7.350-7.450); BG PO2 96.2 mmHg (75.0-100.0); BG SAMPLE SITE ALINE; BG TOTAL HEMOGLOBIN 10.9 g/dL (12.0-18.0); BG VENT MODE MASK - NRB
[2023-02-12 11:39] LABS: BASOPHILS % 0.3 % (0.0-2.0); EOSINOPHILS % 0.7 % (0.0-5.0); HEMATOCRIT. 29.1 % (36.0-48.0); HEMOGLOBIN. 9.9 g/dL (12.0-16.0); LYMPHOCYTES % 10.2 % (20.0-50.0); MEAN CORPUSCULAR VOLUME 88.1 fL (81.0-99.0); MEAN PLATELET VOLUME 7.3 fl (7.4-10.4); MONOCYTES % 3.7 % (2.0-8.0); NEUTROPHILS % 85.1 % (40.0-76.0); PLATELET 133 x1000/uL (130-400); RED CELL DISTRIBUTION WIDTH 17.1 % (11.6-14.6)
[2023-02-12] MEDS ORDERED: CEFAZOLIN 1000MG PREMIX 50 ML IV SCH (12:00)
[2023-02-12] MEDS: DEXTROSE 50% WATER 50ML SYRINGE IV PRN (12:08)
[2023-02-12] MEDS: DEXT 5%/0.45% NACL 1000ML 1,000 ML IV SCH (12:18)
[2023-02-12] MEDS: FENTANYL CITRATE/PF 50MCG/ML 2ML VIAL IV PRN ×3 (12:25→20:58)
[2023-02-12] MEDS: INSULIN REGULAR 100U/100ML PMX 100 ML IV SCH ×2 (12:29→18:43)
[2023-02-12] MEDS: DOPAMINE 400MG/250ML PREMIX 250 ML IV SCH (12:30)
[2023-02-12] MEDS ORDERED: KETOROLAC 15MG/ML VIAL IV PRN (16:00)
[2023-02-12] MEDS ORDERED: MORPHINE SULFATE 2 MG/ML CPJ (NOT FOR IM USE) IV PRN (16:15)
[2023-02-12] MEDS ORDERED: NALOXONE HCL 0.4MG/ML VIAL IV PRN (16:15)
[2023-02-12] MEDS ORDERED: BACITRACIN 15GM TUBE TOP SCH (17:00)
[2023-02-12] MEDS: CEFTRIAXONE 2 G in DEXTROSE 5% WATER 50 ML IV SCH (17:05)
[2023-02-12 17:08] LABS: HEMATOCRIT. 26.8 % (36.0-48.0); HEMOGLOBIN. 9.1 g/dL (12.0-16.0); MEAN CORPUSCULAR HEMOGLOBIN 29.8 pg (28.0-32.0); MEAN CORPUSCULAR VOLUME 87.4 fL (81.0-99.0); MEAN PLATELET VOLUME 7.6 fl (7.4-10.4); PLATELET 120 x1000/uL (130-400); RED BLOOD CELL COUNT 3.06 mill/uL (4.2-5.4); RED CELL DISTRIBUTION WIDTH 16.8 % (11.6-14.6)
[2023-02-12 17:18] LABS: CHLORIDE 99 mEq/L (98-107)
[2023-02-12 17:24] LABS: PHOSPHORUS 3.2 mg/dL (2.5-4.9)
[2023-02-12 17:47] LABS: PLATELET ESTIMATE NORMAL
[2023-02-12] MEDS: ONDANSETRON HCL 4MG/2ML INJ IV PRN ×2 (18:12→21:06)
[2023-02-12] MEDS: IPRATROPIUM/ALBUTEROL 0.5-3(2.5)MG/3ML NEB HHN SCH (20:13)
[2023-02-12] MEDS: DIPHENHYDRAMINE 50MG/ML VIAL IV PRN (20:56)
[2023-02-13] VITALS (99 sets, daily range): BP systolic 99–181; BP diastolic -14–94
[2023-02-13] MEDS: IPRATROPIUM/ALBUTEROL 0.5-3(2.5)MG/3ML NEB HHN SCH ×4 (00:16→19:55)
[2023-02-13] MEDS: ACETAMINOPHEN 325MG TABLET PO PRN ×4 (00:51→19:11)
[2023-02-13] MEDS: BLOOD SUGAR DIAGNOSTIC STRIP TEST SCH ×12 (00:52→21:08)
[2023-02-13 00:58] LABS: CHLORIDE 98 mEq/L (98-107); HEMATOCRIT. 26.5 % (36.0-48.0); HEMOGLOBIN. 8.9 g/dL (12.0-16.0); MEAN CORPUSCULAR HEMOGLOBIN 29.8 pg (28.0-32.0); MEAN PLATELET VOLUME 7.9 fl (7.4-10.4); PLATELET 116 x1000/uL (130-400); RED BLOOD CELL COUNT 2.98 mill/uL (4.2-5.4)
[2023-02-13 01:06] LABS: PHOSPHORUS 4.7 mg/dL (2.5-4.9)
[2023-02-13 01:49] LABS: PLATELET ESTIMATE NORMAL
[2023-02-13] MEDS: FENTANYL CITRATE/PF 50MCG/ML 2ML VIAL IV PRN ×2 (03:33→11:48)
[2023-02-13] MEDS: DIPHENHYDRAMINE 50MG/ML VIAL IV PRN (03:33)
[2023-02-13] MEDS: ONDANSETRON HCL 4MG/2ML INJ IV PRN ×4 (03:38→19:23)
[2023-02-13] MEDS: DOPAMINE 400MG/250ML PREMIX 250 ML IV SCH ×2 (04:18→21:36)
[2023-02-13 05:47] LABS: BASOPHILS % 0.3 % (0.0-2.0); EOSINOPHILS % 0.1 % (0.0-5.0); HEMATOCRIT. 26.2 % (36.0-48.0); HEMOGLOBIN. 8.7 g/dL (12.0-16.0); LYMPHOCYTES % 7.1 % (20.0-50.0); MEAN CORPUSCULAR HEMOGLOBIN 29.6 pg (28.0-32.0); MEAN CORPUSCULAR VOLUME 89.6 fL (81.0-99.0); MEAN PLATELET VOLUME 8.5 fl (7.4-10.4); MONOCYTES % 9.2 % (2.0-8.0); NEUTROPHILS % 83.3 % (40.0-76.0); PLATELET 116 x1000/uL (130-400); RED BLOOD CELL COUNT 2.92 mill/uL (4.2-5.4); RED CELL DISTRIBUTION WIDTH 17.1 % (11.6-14.6)
[2023-02-13] MEDS: HYDRALAZINE HCL 100MG TABLET PO SCH ×3 (06:02→21:53)
[2023-02-13] MEDS: CLONIDINE 0.2MG TABLET PO SCH ×3 (06:03→21:53)
[2023-02-13 06:04] LABS: PHOSPHORUS 5.1 mg/dL (2.5-4.9)
[2023-02-13] MEDS: LEVOTHYROXINE SODIUM 150MCG TABLET PO SCH (07:42)
[2023-02-13] MEDS ORDERED: CEFAZOLIN 1000MG PREMIX 50 ML IV SCH (08:00)
[2023-02-13] MEDS: MORPHINE SULFATE 2 MG/ML CPJ (NOT FOR IM USE) IV PRN ×2 (08:13→14:09)
[2023-02-13] MEDS: LABETALOL HCL 300MG TABLET PO SCH ×4 (08:23→21:52)
[2023-02-13] MEDS: MINOXIDIL 2.5MG TABLET PO SCH ×3 (08:23→21:53)
[2023-02-13] MEDS: ASPIRIN 81MG EC TABLET PO SCH (08:23)
[2023-02-13] MEDS: AMLODIPINE 10MG TABLET PO SCH (08:23)
[2023-02-13] MEDS: SEVELAMER CARBONATE 800 MG TABLET PO SCH ×3 (08:24→18:06)
[2023-02-13] MEDS: DOXAZOSIN MESYLATE 4MG TABLET PO SCH ×2 (09:00→21:52)
[2023-02-13] MEDS: DEXT 5%/0.45% NACL 1000ML 1,000 ML IV SCH (10:34)
[2023-02-13] MEDS: CEFTRIAXONE 2 G in DEXTROSE 5% WATER 50 ML IV SCH (16:04)
[2023-02-13] MEDS ORDERED: DEXTROSE 50% WATER 50ML SYRINGE IV PRN (17:15)
[2023-02-13 17:30] LABS: HEMATOCRIT. 24.5 % (36.0-48.0); HEMOGLOBIN. 8.4 g/dL (12.0-16.0); MEAN CORPUSCULAR HEMOGLOBIN 30.4 pg (28.0-32.0); MEAN PLATELET VOLUME 8.5 fl (7.4-10.4); PLATELET 119 x1000/uL (130-400); RED BLOOD CELL COUNT 2.75 mill/uL (4.2-5.4); RED CELL DISTRIBUTION WIDTH 16.7 % (11.6-14.6)
[2023-02-13] MEDS: INSULIN LISPRO 100 UNITS/ML SUBCUT SCH ×2 (17:50→22:03)
[2023-02-13] MEDS: HYDRALAZINE 20MG/ML VIAL IV PRN (18:07)
[2023-02-13 19:40] LABS: PLATELET ESTIMATE DECREASED
[2023-02-14] VITALS (52 sets, daily range): BP systolic 124–178; BP diastolic 45–88
[2023-02-14] MEDS: IPRATROPIUM/ALBUTEROL 0.5-3(2.5)MG/3ML NEB HHN SCH ×6 (00:10→20:54)
[2023-02-14] MEDS: HYDRALAZINE 20MG/ML VIAL IV PRN ×4 (01:15→18:15)
[2023-02-14 05:24] LABS: HEMATOCRIT. 25.8 % (36.0-48.0); HEMOGLOBIN. 8.5 g/dL (12.0-16.0); MEAN CORPUSCULAR HEMOGLOBIN 29.8 pg (28.0-32.0); MEAN CORPUSCULAR VOLUME 91.1 fL (81.0-99.0); MEAN PLATELET VOLUME 8.8 fl (7.4-10.4); PLATELET 125 x1000/uL (130-400); RED BLOOD CELL COUNT 2.83 mill/uL (4.2-5.4); RED CELL DISTRIBUTION WIDTH 17.1 % (11.6-14.6)
[2023-02-14] MEDS: ONDANSETRON HCL 4MG/2ML INJ IV PRN ×2 (05:24→23:51)
[2023-02-14] MEDS: CLONIDINE 0.2MG TABLET PO SCH ×2 (05:24→23:19)
[2023-02-14] MEDS: HYDRALAZINE HCL 100MG TABLET PO SCH ×2 (05:25→23:20)
[2023-02-14 05:49] LABS: PHOSPHORUS 7.5 mg/dL (2.5-4.9)
[2023-02-14] MEDS: BLOOD SUGAR DIAGNOSTIC STRIP TEST SCH ×4 (06:43→21:39)
[2023-02-14] MEDS: INSULIN LISPRO 100 UNITS/ML SUBCUT SCH ×4 (06:50→22:08)
[2023-02-14] MEDS: LEVOTHYROXINE SODIUM 150MCG TABLET PO SCH (08:30)
[2023-02-14] MEDS: SEVELAMER CARBONATE 800 MG TABLET PO SCH ×3 (08:30→17:42)
[2023-02-14] MEDS: LABETALOL HCL 300MG TABLET PO SCH ×2 (08:35→23:21)
[2023-02-14] MEDS: MINOXIDIL 2.5MG TABLET PO SCH ×2 (08:36→22:04)
[2023-02-14] MEDS: AMLODIPINE 10MG TABLET PO SCH (08:36)
[2023-02-14] MEDS: DOXAZOSIN MESYLATE 4MG TABLET PO SCH ×2 (08:36→22:03)
[2023-02-14] MEDS: FAMOTIDINE 20MG TABLET PO SCH (08:36)
[2023-02-14] MEDS: ASPIRIN 81MG EC TABLET PO SCH (08:36)
[2023-02-14 08:49] LABS: PLATELET ESTIMATE SLIGHTLY DECREASED
[2023-02-14] MEDS: METOCLOPRAMIDE HCL 10MG/2ML VIAL IV SCH ×3 (12:00→23:22)
[2023-02-14] MEDS: MORPHINE SULFATE 2 MG/ML CPJ (NOT FOR IM USE) IV PRN (12:30)
[2023-02-14] MEDS: CEFTRIAXONE 2 G in DEXTROSE 5% WATER 50 ML IV SCH (15:34)
[2023-02-14] MEDS: DIPHENHYDRAMINE 50MG/ML VIAL IV PRN (15:34)
[2023-02-14] MEDS ORDERED: BISACODYL 10MG SUPP PR NR (21:15)
[2023-02-14] MEDS: LACTULOSE 20G/30ML UDC PO SCH (22:05)
[2023-02-15] MEDS: IPRATROPIUM/ALBUTEROL 0.5-3(2.5)MG/3ML NEB HHN SCH ×6 (00:52→21:13)
[2023-02-15 04:16] VITALS: BP 137/59
[2023-02-15] MEDS: METOCLOPRAMIDE HCL 10MG/2ML VIAL IV SCH ×3 (05:53→17:15)
[2023-02-15] MEDS: HYDRALAZINE HCL 100MG TABLET PO SCH (05:54)
[2023-02-15] MEDS: CLONIDINE 0.2MG TABLET PO SCH ×3 (05:55→21:23)
[2023-02-15] MEDS: LEVOTHYROXINE SODIUM 150MCG TABLET PO SCH (05:56)
[2023-02-15 05:57] LABS: HEMATOCRIT. 22.2 % (36.0-48.0); HEMOGLOBIN. 7.2 g/dL (12.0-16.0); MEAN CORPUSCULAR HEMOGLOBIN 29.3 pg (28.0-32.0); MEAN CORPUSCULAR VOLUME 90.3 fL (81.0-99.0); MEAN PLATELET VOLUME 8.6 fl (7.4-10.4); PLATELET 134 x1000/uL (130-400); RED BLOOD CELL COUNT 2.46 mill/uL (4.2-5.4); RED CELL DISTRIBUTION WIDTH 16.7 % (11.6-14.6)
[2023-02-15] MEDS: BLOOD SUGAR DIAGNOSTIC STRIP TEST SCH ×4 (06:28→21:55)
[2023-02-15 06:42] LABS: PHOSPHORUS 8.4 mg/dL (2.5-4.9)
[2023-02-15 08:00] VITALS: BP 100/46
[2023-02-15] MEDS ORDERED: SODIUM POLYSTYRENE SULFONATE 15 G/60 ML BOT PO NR (08:00)
[2023-02-15] MEDS ORDERED: ALBUTEROL (0.083%) 2.5MG/3ML NEB HHN NR (08:00)
[2023-02-15] MEDS: DOXAZOSIN MESYLATE 4MG TABLET PO SCH ×2 (09:00→21:22)
[2023-02-15] MEDS: MINOXIDIL 2.5MG TABLET PO SCH ×2 (09:00→21:22)
[2023-02-15] MEDS: LABETALOL HCL 300MG TABLET PO SCH ×2 (09:00→21:23)
[2023-02-15] MEDS: ASPIRIN 81MG EC TABLET PO SCH (09:03)
[2023-02-15] MEDS: SEVELAMER CARBONATE 800 MG TABLET PO SCH ×3 (09:03→17:15)
[2023-02-15] MEDS: AMLODIPINE 10MG TABLET PO SCH (09:04)
[2023-02-15] MEDS: LACTULOSE 20G/30ML UDC PO SCH (09:09)
[2023-02-15] MEDS: INSULIN LISPRO 100 UNITS/ML SUBCUT SCH ×4 (09:15→22:04)
[2023-02-15 12:00] VITALS: BP 147/71
[2023-02-15 13:27] LABS: PLATELET ESTIMATE NORMAL
[2023-02-15] MEDS: CEFTRIAXONE 2 G in DEXTROSE 5% WATER 50 ML IV SCH (14:59)
[2023-02-15] MEDS: HYDRALAZINE HCL 25MG TABLET PO SCH ×2 (15:01→21:23)
[2023-02-15 16:00] VITALS: BP 147/63
[2023-02-15 20:00] VITALS: BP 156/70
[2023-02-15] MEDS: ONDANSETRON HCL 4MG/2ML INJ IV PRN (21:37)
[2023-02-15] MEDS: INSULIN GLARGINE 100 UNITS/ML SUBCUT SCH (22:05)
[2023-02-15] MEDS: HYDROCODONE/ACETAMINOPHEN 7.5/325MG TABLET PO PRN (22:10)
[2023-02-16] VITALS (20 sets, daily range): BP systolic 105–167; BP diastolic 42–79
[2023-02-16] MEDS: IPRATROPIUM/ALBUTEROL 0.5-3(2.5)MG/3ML NEB HHN SCH ×6 (00:45→20:19)
[2023-02-16] MEDS ORDERED: INSULIN LISPRO 100 UNITS/ML SUBCUT SCH (06:50)
[2023-02-16] MEDS: HYDRALAZINE HCL 25MG TABLET PO SCH ×3 (06:52→21:27)
[2023-02-16] MEDS: SEVELAMER CARBONATE 800 MG TABLET PO SCH ×3 (06:53→17:37)
[2023-02-16] MEDS: BLOOD SUGAR DIAGNOSTIC STRIP TEST SCH ×4 (06:53→21:31)
[2023-02-16] MEDS: LEVOTHYROXINE SODIUM 150MCG TABLET PO SCH (06:53)
[2023-02-16] MEDS: METOCLOPRAMIDE HCL 10MG/2ML VIAL IV SCH ×5 (06:57→23:40)
[2023-02-16] MEDS: CLONIDINE 0.2MG TABLET PO SCH ×3 (06:57→21:26)
[2023-02-16 08:15] LABS: MEAN CORPUSCULAR HEMOGLOBIN 29.6 pg (28.0-32.0); MEAN CORPUSCULAR VOLUME 89.5 fL (81.0-99.0); MEAN PLATELET VOLUME 8.6 fl (7.4-10.4); PLATELET 145 x1000/uL (130-400); RED BLOOD CELL COUNT 2.15 mill/uL (4.2-5.4); RED CELL DISTRIBUTION WIDTH 16.6 % (11.6-14.6)
[2023-02-16 08:19] LABS: HEMATOCRIT. 19.2 % (36.0-48.0); HEMOGLOBIN. 6.4 g/dL (12.0-16.0)
[2023-02-16] MEDS: INSULIN LISPRO 100 UNITS/ML SUBCUT SCH ×7 (09:00→21:00)
[2023-02-16] MEDS: HYDROCODONE/ACETAMINOPHEN 7.5/325MG TABLET PO PRN (09:10)
[2023-02-16] MEDS: ONDANSETRON HCL 4MG/2ML INJ IV PRN (09:10)
[2023-02-16 10:49] LABS: PLATELET ESTIMATE NORMAL
[2023-02-16] MEDS: LACTULOSE 20G/30ML UDC PO SCH (11:37)
[2023-02-16] MEDS: LABETALOL HCL 300MG TABLET PO SCH ×2 (11:39→21:26)
[2023-02-16] MEDS: DOXAZOSIN MESYLATE 4MG TABLET PO SCH ×2 (11:39→21:25)
[2023-02-16] MEDS: FAMOTIDINE 20MG TABLET PO SCH (11:40)
[2023-02-16] MEDS: ASPIRIN 81MG EC TABLET PO SCH (11:40)
[2023-02-16] MEDS: AMLODIPINE 10MG TABLET PO SCH (11:40)
[2023-02-16] MEDS: MINOXIDIL 2.5MG TABLET PO SCH ×2 (11:40→21:25)
[2023-02-16] MEDS: CEFTRIAXONE 2 G in DEXTROSE 5% WATER 50 ML IV SCH (15:12)
[2023-02-16 17:11] LABS: HEMATOCRIT 29.9 % (36.0-48.0); HEMOGLOBIN 10.4 g/dL (12.0-16.0); MEAN CORPUSCULAR HEMOGLOBIN 30.6 pg (28.0-32.0); MEAN CORPUSCULAR VOLUME 88.2 fL (81.0-99.0); PLATELET 147 x1000/uL (130-400); RED BLOOD CELL COUNT 3.39 mill/uL (4.2-5.4); RED CELL DISTRIBUTION WIDTH 15.7 % (11.6-14.6)
[2023-02-16] MEDS: INSULIN GLARGINE 100 UNITS/ML SUBCUT SCH (21:31)
[2023-02-17] VITALS (7 sets, daily range): BP systolic 109–132; BP diastolic 51–59
[2023-02-17] MEDS: IPRATROPIUM/ALBUTEROL 0.5-3(2.5)MG/3ML NEB HHN SCH ×5 (00:11→16:10)
[2023-02-17] MEDS: HYDROCODONE/ACETAMINOPHEN 7.5/325MG TABLET PO PRN ×3 (05:39→20:46)
[2023-02-17] MEDS: HYDRALAZINE HCL 25MG TABLET PO SCH ×2 (05:56→14:35)
[2023-02-17] MEDS: CLONIDINE 0.2MG TABLET PO SCH ×2 (05:56→14:35)
[2023-02-17] MEDS: METOCLOPRAMIDE HCL 10MG/2ML VIAL IV SCH ×2 (05:57→12:00)
[2023-02-17] MEDS: LEVOTHYROXINE SODIUM 150MCG TABLET PO SCH (05:59)
[2023-02-17 06:38] LABS: HEMATOCRIT. 26.8 % (36.0-48.0); MEAN CORPUSCULAR HEMOGLOBIN 29.5 pg (28.0-32.0); MEAN CORPUSCULAR VOLUME 87.6 fL (81.0-99.0); MEAN PLATELET VOLUME 8.3 fl (7.4-10.4); PLATELET 146 x1000/uL (130-400); RED BLOOD CELL COUNT 3.06 mill/uL (4.2-5.4); RED CELL DISTRIBUTION WIDTH 15.6 % (11.6-14.6)
[2023-02-17 06:53] LABS: PHOSPHORUS 5.5 mg/dL (2.5-4.9)
[2023-02-17] MEDS: BLOOD SUGAR DIAGNOSTIC STRIP TEST SCH ×3 (06:58→16:50)
[2023-02-17] MEDS: INSULIN LISPRO 100 UNITS/ML SUBCUT SCH ×6 (07:11→18:01)
[2023-02-17] MEDS: ASPIRIN 81MG EC TABLET PO SCH (08:50)
[2023-02-17] MEDS: DOXAZOSIN MESYLATE 4MG TABLET PO SCH (08:50)
[2023-02-17] MEDS: AMLODIPINE 10MG TABLET PO SCH (08:50)
[2023-02-17] MEDS: MINOXIDIL 2.5MG TABLET PO SCH (08:50)
[2023-02-17] MEDS: SEVELAMER CARBONATE 800 MG TABLET PO SCH ×3 (08:51→18:02)
[2023-02-17] MEDS: LABETALOL HCL 300MG TABLET PO SCH (08:51)
[2023-02-17] MEDS: LACTULOSE 20G/30ML UDC PO SCH (08:51)
[2023-02-17] MEDS: ONDANSETRON HCL 4MG/2ML INJ IV PRN (08:51)
[2023-02-17] MEDS ORDERED: MORPHINE SULFATE 2 MG/ML CPJ (NOT FOR IM USE) IV NR (15:45)
[2023-02-17] MEDS ORDERED: DIGOXIN 500MCG/2ML AMP IV NR (16:15)
[2023-02-17] MEDS ORDERED: SODIUM CHLORIDE 0.9% 250 ML IV ONE (16:15)
[2023-02-17] MEDS: CEFTRIAXONE 2 G in DEXTROSE 5% WATER 50 ML IV SCH (16:26)
[2023-02-17 17:15] LABS: PLATELET ESTIMATE NORMAL
== END 2023-02-17 19:30 | disposition short-term general hospital (02) | DRG 216 ==
LOC: ER 16:34 → CVICU 19:52 → ENRESERV 21:00 → 7WST 02-03 13:11 → MICUSO 02-04 01:13 → CVICU 02-07 12:08 → 3WST 02-14 14:22
PROVIDERS: ADMIT Internal Medicine; ATTEND Internal Medicine
PROC: 5A1D70Z Performance of Urinary Filtration, Intermittent, Less than 6 Hours Per Day (ICD-10-PCS; 2023-02-01)
PROC: 02HV33Z Insertion of Infusion Device into Superior Vena Cava, Percutaneous Approach (ICD-10-PCS; 2023-02-03)
PROC: B548ZZA Ultrasonography of Superior Vena Cava, Guidance (ICD-10-PCS; 2023-02-03)
PROC: 5A1D70Z Performance of Urinary Filtration, Intermittent, Less than 6 Hours Per Day (ICD-10-PCS; 2023-02-03)
PROC: 5A1D70Z Performance of Urinary Filtration, Intermittent, Less than 6 Hours Per Day (ICD-10-PCS; 2023-02-04)
PROC: B24BZZ4 Ultrasonography of Heart with Aorta, Transesophageal (ICD-10-PCS; 2023-02-05)
PROC: 5A1D70Z Performance of Urinary Filtration, Intermittent, Less than 6 Hours Per Day (ICD-10-PCS; 2023-02-06)
PROC: 4A023N7 Measurement of Cardiac Sampling and Pressure, Left Heart, Percutaneous Approach (ICD-10-PCS; 2023-02-07)
PROC: B211YZZ Fluoroscopy of Multiple Coronary Arteries using Other Contrast (ICD-10-PCS; 2023-02-07)
PROC: B34HZZZ Ultrasonography of Right Upper Extremity Arteries (ICD-10-PCS; 2023-02-07)
PROC: 5A1D70Z Performance of Urinary Filtration, Intermittent, Less than 6 Hours Per Day (ICD-10-PCS; 2023-02-08)
PROC: 5A1D70Z Performance of Urinary Filtration, Intermittent, Less than 6 Hours Per Day (ICD-10-PCS; 2023-02-11)
PROC: 02QG0ZZ Repair Mitral Valve, Open Approach (ICD-10-PCS; principal; 2023-02-12)
PROC: 5A1221Z Performance of Cardiac Output, Continuous (ICD-10-PCS; 2023-02-12)
PROC: 3E080GC Introduction of Other Therapeutic Substance into Heart, Open Approach (ICD-10-PCS; 2023-02-12)
PROC: 5A1D70Z Performance of Urinary Filtration, Intermittent, Less than 6 Hours Per Day (ICD-10-PCS; 2023-02-12)
PROC: 5A1D70Z Performance of Urinary Filtration, Intermittent, Less than 6 Hours Per Day (ICD-10-PCS; 2023-02-13)
PROC: 5A1D70Z Performance of Urinary Filtration, Intermittent, Less than 6 Hours Per Day (ICD-10-PCS; 2023-02-14)
PROC: 30233N1 Transfusion of Nonautologous Red Blood Cells into Peripheral Vein, Percutaneous Approach (ICD-10-PCS; 2023-02-16)
PROC: 5A1D70Z Performance of Urinary Filtration, Intermittent, Less than 6 Hours Per Day (ICD-10-PCS; 2023-02-16)
DX: I34.0 Nonrheumatic mitral (valve) insufficiency (principal); A41.9 Sepsis, unspecified organism; G92.8 Other toxic encephalopathy; I33.0 Acute and subacute infective endocarditis; N18.6 End stage renal disease; I21.A1 Myocardial infarction type 2; J96.01 Acute respiratory failure with hypoxia; I16.1 Hypertensive emergency; E87.1 Hypo-osmolality and hyponatremia; I50.42 Chronic combined systolic (congestive) and diastolic (congestive) heart failure; I13.2 Hypertensive heart and chronic kidney disease with heart failure and with stage 5 chronic kidney disease, or end stage renal disease; I45.2 Bifascicular block; I27.20 Pulmonary hypertension, unspecified; E11.65 Type 2 diabetes mellitus with hyperglycemia; E11.649 Type 2 diabetes mellitus with hypoglycemia without coma; D64.9 Anemia, unspecified; E03.9 Hypothyroidism, unspecified; E78.5 Hyperlipidemia, unspecified; E87.5 Hyperkalemia; E78.1 Pure hyperglyceridemia; I25.10 Atherosclerotic heart disease of native coronary artery without angina pectoris; E11.22 Type 2 diabetes mellitus with diabetic chronic kidney disease; Z88.5 Allergy status to narcotic agent; Z88.8 Allergy status to other drugs, medicaments and biological substances; Z99.2 Dependence on renal dialysis; Z91.018 Allergy to other foods; Z91.09 Other allergy status, other than to drugs and biological substances; Z79.899 Other long term (current) drug therapy; Z79.82 Long term (current) use of aspirin; Z95.2 Presence of prosthetic heart valve
CPT/HCPCS: 36415; 36573; 36600; 70551; 71045; 74018; 80048; 80053; 80061; 80305; 80320; 82140; 82375; 82550; 82553; 82805; 82962; 83036; 83605; 83735; 83880; 83930; 83935; 84100; 84132; 84145; 84439; 84443; 84484; 85025; 85027; 85347; 85379; 86141; 86430; 86705; 86709; 86803; 86850; 86900; 86920; 87070; 87075; 87340; 88305; 90935; 93005; 93306; 93312; 93458; 93880; 93970; 93971; 94640; 97110; 97162; 97166; 97530; 97535; 99291; A4565; C1725; C1729; C1751; C1758; C1769; C1887; C1893; C9113; J0360; J0690; J0696; J1100; J1160; J1200; J1265; J1644; J1650; J1815; J1885; J1940; J2060; J2250; J2270; J2370; J2405; J2704; J2765; J3010; J3370; J3475; J3490; J7030; J7050; J7060; L3908; P9016; P9047; Q0163; Q9967; G0480

== ENCOUNTER 2023-04-16 03:15 | Inpatient (IN) | payer OTHER ==
[~2023-04-16] VITALS: Ht 160 cm; Wt 72.6 kg
[2023-04-16] MEDS ORDERED: ONDANSETRON 4MG ODT PO ONE (05:30)
[2023-04-16 05:36] LABS: BASOPHILS % 0.8 % (0.0-2.0); EOSINOPHILS % 2.5 % (0.0-5.0); HEMATOCRIT. 31.3 % (36.0-48.0); HEMOGLOBIN. 10.5 g/dL (12.0-16.0); LYMPHOCYTES % 20.7 % (20.0-50.0); MEAN CORPUSCULAR HEMOGLOBIN 30.2 pg (28.0-32.0); MEAN CORPUSCULAR VOLUME 90.1 fL (81.0-99.0); MEAN PLATELET VOLUME 7.2 fl (7.4-10.4); MONOCYTES % 12.9 % (2.0-8.0); NEUTROPHILS % 63.1 % (40.0-76.0); PLATELET 149 x1000/uL (130-400); RED BLOOD CELL COUNT 3.48 mill/uL (4.2-5.4); RED CELL DISTRIBUTION WIDTH 20.6 % (11.6-14.6)
[2023-04-16 05:53] LABS: CHLORIDE 105 mEq/L (98-107)
[2023-04-16] MEDS ORDERED: DEXTROSE 50% WATER 50ML SYRINGE IV ONE (07:15)
[2023-04-16] MEDS ORDERED: ASPIRIN 325MG EC TABLET PO NR (07:15)
[2023-04-16] MEDS ORDERED: MAGNESIUM/ALUMINUM HYDROXIDE/SIMETHICONE 30ML UDC PO PRN (11:45)
[2023-04-16] MEDS ORDERED: WARFARIN SODIUM 10MG TABLET PO SCH (11:45)
[2023-04-16] MEDS ORDERED: ONDANSETRON HCL 4MG/2ML INJ IV PRN (11:45)
[2023-04-16] MEDS ORDERED: DEXTROSE 50% WATER 50ML SYRINGE IV PRN (11:45)
[2023-04-16] MEDS ORDERED: DOCUSATE SODIUM 100MG CAPSULE PO PRN (11:45)
[2023-04-16] MEDS ORDERED: IPRATROPIUM/ALBUTEROL 0.5-3(2.5)MG/3ML NEB HHN PRN (11:45)
[2023-04-16] MEDS ORDERED: ACETAMINOPHEN 325MG TABLET PO PRN ×2 (11:45)
[2023-04-16 12:44] LABS: D-DIMER 0.67 mg/L FEU (<0.50); PROTHROMBIN TIME 56.6 sec (9.6-11.0)
[2023-04-16 12:50] LABS: INR 5.9
[2023-04-16 12:52] LABS: PHOSPHORUS 4.2 mg/dL (2.5-4.9)
[2023-04-16] MEDS: INSULIN LISPRO 100 UNITS/ML SUBCUT SCH ×3 (13:20→21:58)
[2023-04-16] MEDS: BLOOD SUGAR DIAGNOSTIC STRIP TEST SCH ×3 (13:27→21:26)
[2023-04-16] MEDS: PANTOPRAZOLE SODIUM 40 MG/VIAL IV SCH (13:36)
[2023-04-16 14:21] LABS: VITAMIN B12 SERUM 797 pg/mL (211-911)
[2023-04-16] MEDS: HYDRALAZINE HCL 100MG TABLET PO SCH ×2 (14:26→21:04)
[2023-04-16] MEDS: LABETALOL HCL 300MG TABLET PO SCH ×2 (14:26→21:04)
[2023-04-16 15:07] VITALS: BP 177/86; PULSE 69; RESP 18; TEMP 98.6
[2023-04-16 15:17] LABS: FERRITIN 1001 ng/mL (10-291)
[2023-04-16 16:00] VITALS: BP 179/79; PULSE 71; RESP 32; TEMP 98.4
[2023-04-16] MEDS: CLONIDINE 0.1MG TABLET PO PRN (17:05)
[2023-04-16 19:59] LABS: HEPATITIS B SURFACE ANTIGEN NEGATIVE
[2023-04-16 20:00] VITALS: BP 167/93; PULSE 73; RESP 22; TEMP 98.2
[2023-04-16] MEDS ORDERED: DIPHENHYDRAMINE 50MG/ML VIAL IM NR (21:45)
[2023-04-16] MEDS ORDERED: HYDROCODONE/ACETAMINOPHEN 5/325MG TABLET PO NR (21:45)
[2023-04-16 22:00] VITALS: BP 174/103; PULSE 69; RESP 23
[2023-04-17] VITALS (14 sets, daily range): BP systolic 75–192; BP diastolic 40–96; PULSE 68–88; RESP 16–27; TEMP 97–98.1
[2023-04-17 00:03] LABS: CREATINE KINASE MB FRACTION 3.8 ng/mL (0.5-3.6)
[2023-04-17] MEDS: CLONIDINE 0.1MG TABLET PO PRN ×3 (02:54→20:23)
[2023-04-17] MEDS ORDERED: WARF10TA44 PO (03:16)
[2023-04-17] MEDS ORDERED: LABE300T36 PO (03:16)
[2023-04-17] MEDS ORDERED: FAMO40TA7 PO (03:16)
[2023-04-17] MEDS ORDERED: REN800 PO (03:16)
[2023-04-17] MEDS ORDERED: AMI2 PO (03:16)
[2023-04-17] MEDS ORDERED: HYDR100T26 PO (03:16)
[2023-04-17] MEDS ORDERED: AMLO10TA80 PO (03:16)
[2023-04-17] MEDS ORDERED: LEVO300T2 PO (03:16)
[2023-04-17] MEDS ORDERED: TERA10CA4 PO (03:16)
[2023-04-17] MEDS ORDERED: FURO80TA87 PO (03:21)
[2023-04-17] MEDS: BLOOD SUGAR DIAGNOSTIC STRIP TEST SCH ×4 (06:06→20:32)
[2023-04-17] MEDS: LABETALOL HCL 300MG TABLET PO SCH ×3 (06:06→21:14)
[2023-04-17] MEDS ORDERED: LEVOTHYROXINE SODIUM 100MCG TABLET PO SCH (06:50)
[2023-04-17] MEDS: SEVELAMER CARBONATE 800 MG TABLET PO SCH ×3 (07:20→17:22)
[2023-04-17] MEDS: INSULIN LISPRO 100 UNITS/ML SUBCUT SCH ×4 (07:20→21:19)
[2023-04-17] MEDS ORDERED: AMLODIPINE 10MG TABLET PO SCH ×2 (09:00→17:00)
[2023-04-17] MEDS ORDERED: FAMOTIDINE 40MG TABLET PO SCH (09:00)
[2023-04-17] MEDS ORDERED: FUROSEMIDE 40MG TABLET PO SCH (09:00)
[2023-04-17] MEDS ORDERED: LABETALOL HCL 300MG TABLET PO SCH (09:00)
[2023-04-17] MEDS: PANTOPRAZOLE SODIUM 40 MG/VIAL IV SCH (09:38)
[2023-04-17] MEDS: AMIODARONE HCL 200 MG TABLET PO SCH (09:39)
[2023-04-17] MEDS: HYDRALAZINE HCL 100MG TABLET PO SCH ×4 (09:39→21:13)
[2023-04-17 10:26] LABS: BASOPHILS % 0.8 % (0.0-2.0); HEMATOCRIT. 31.8 % (36.0-48.0); HEMOGLOBIN. 10.6 g/dL (12.0-16.0); MEAN CORPUSCULAR HEMOGLOBIN 30.2 pg (28.0-32.0); MEAN PLATELET VOLUME 7.7 fl (7.4-10.4); MONOCYTES % 10.4 % (2.0-8.0); NEUTROPHILS % 71.8 % (40.0-76.0); PLATELET 147 x1000/uL (130-400); RED BLOOD CELL COUNT 3.53 mill/uL (4.2-5.4); RED CELL DISTRIBUTION WIDTH 20.7 % (11.6-14.6)
[2023-04-17 10:41] LABS: CHLORIDE 96 mEq/L (98-107)
[2023-04-17 10:57] LABS: HDL CHOLESTEROL 110 mg/dL (40-59); LDL CHOLESTEROL 49 mg/dL (5-100); T4 FREE 1.29 ng/dL (0.76-1.46)
[2023-04-17 11:39] LABS: PROTHROMBIN TIME 66.4 sec (9.6-11.0)
[2023-04-17] MEDS ORDERED: WARFARIN SODIUM 10MG TABLET PO SCH (17:00)
[2023-04-17 17:36] LABS: HEPATITIS B SURFACE ANTIGEN NEGATIVE
[2023-04-17] MEDS ORDERED: HYDRALAZINE HCL 100MG TABLET PO NR (18:45)
[2023-04-17] MEDS ORDERED: TERAZOSIN HCL 5MG CAPSULE PO SCH (21:00)
[2023-04-17] MEDS: INSULIN GLARGINE 100 UNITS/ML SUBCUT SCH (21:18)
[2023-04-18] VITALS (18 sets, daily range): BP systolic 16–176; BP diastolic 71–87; PULSE 61–72; RESP 12–23; TEMP 97.8–98.6; O2SAT 96
[2023-04-18] MEDS ORDERED: HYDROCODONE/ACETAMINOPHEN 5/325MG TABLET PO NR (00:30)
[2023-04-18] MEDS: HYDRALAZINE HCL 100MG TABLET PO SCH ×2 (05:42→15:02)
[2023-04-18] MEDS: CLONIDINE 0.1MG TABLET PO PRN (05:43)
[2023-04-18] MEDS: LABETALOL HCL 300MG TABLET PO SCH ×2 (05:43→15:03)
[2023-04-18] MEDS: BLOOD SUGAR DIAGNOSTIC STRIP TEST SCH ×3 (06:14→16:48)
[2023-04-18] MEDS: INSULIN LISPRO 100 UNITS/ML SUBCUT SCH ×3 (06:19→17:20)
[2023-04-18] MEDS ORDERED: LEVOTHYROXINE SODIUM 150MCG TABLET PO SCH (06:50)
[2023-04-18 07:13] LABS: PROTHROMBIN TIME 41.3 sec (9.6-11.0)
[2023-04-18 07:18] LABS: BASOPHILS % 0.6 % (0.0-2.0); EOSINOPHILS % 3.8 % (0.0-5.0); HEMATOCRIT. 30.7 % (36.0-48.0); HEMOGLOBIN. 10.3 g/dL (12.0-16.0); LYMPHOCYTES % 19.2 % (20.0-50.0); MEAN CORPUSCULAR VOLUME 89.4 fL (81.0-99.0); MEAN PLATELET VOLUME 7.3 fl (7.4-10.4); MONOCYTES % 11.1 % (2.0-8.0); NEUTROPHILS % 65.3 % (40.0-76.0); PLATELET 132 x1000/uL (130-400); RED BLOOD CELL COUNT 3.43 mill/uL (4.2-5.4); RED CELL DISTRIBUTION WIDTH 20.3 % (11.6-14.6)
[2023-04-18] MEDS: SEVELAMER CARBONATE 800 MG TABLET PO SCH ×3 (07:44→17:42)
[2023-04-18] MEDS: AMIODARONE HCL 200 MG TABLET PO SCH (07:44)
[2023-04-18 07:47] LABS: INR 4.2
[2023-04-18] MEDS ORDERED: FAMOTIDINE 20MG TABLET PO SCH (09:00)
[2023-04-18] MEDS ORDERED: TRAM50TA3 MT (11:11)
[2023-04-18] MEDS: INSULIN GLARGINE 100 UNITS/ML SUBCUT SCH (11:19)
== END 2023-04-18 20:41 | disposition home or self-care (01) | DRG 280 ==
LOC: ER 03:32 → 3WST 10:12 → EDBEDREQTM 10:21 → EDBEDREQ 10:21
PROVIDERS: ADMIT Internal Medicine; ATTEND Internal Medicine
PROC: 5A1D70Z Performance of Urinary Filtration, Intermittent, Less than 6 Hours Per Day (ICD-10-PCS; principal; 2023-04-17)
PROC: 5A1D70Z Performance of Urinary Filtration, Intermittent, Less than 6 Hours Per Day (ICD-10-PCS; 2023-04-18)
DX: I21.4 Non-ST elevation (NSTEMI) myocardial infarction (principal); N18.6 End stage renal disease; I13.2 Hypertensive heart and chronic kidney disease with heart failure and with stage 5 chronic kidney disease, or end stage renal disease; E44.1 Mild protein-calorie malnutrition; E87.1 Hypo-osmolality and hyponatremia; I50.22 Chronic systolic (congestive) heart failure; E03.9 Hypothyroidism, unspecified; E86.0 Dehydration; E11.22 Type 2 diabetes mellitus with diabetic chronic kidney disease; E78.5 Hyperlipidemia, unspecified; I34.0 Nonrheumatic mitral (valve) insufficiency; E11.649 Type 2 diabetes mellitus with hypoglycemia without coma; T38.3X5A Adverse effect of insulin and oral hypoglycemic [antidiabetic] drugs, initial encounter; D72.819 Decreased white blood cell count, unspecified; Z95.2 Presence of prosthetic heart valve; Z79.01 Long term (current) use of anticoagulants; Z79.4 Long term (current) use of insulin; Z99.2 Dependence on renal dialysis; I25.2 Old myocardial infarction; Z79.899 Other long term (current) drug therapy; Z68.28 Body mass index [BMI] 28.0-28.9, adult; Y92.89 Other specified places as the place of occurrence of the external cause
CPT/HCPCS: 36415; 71045; 80048; 80053; 80061; 82550; 82553; 82607; 82728; 82962; 83036; 83540; 83550; 83605; 83735; 83880; 84100; 84145; 84439; 84443; 84481; 84484; 85025; 85379; 85651; 86705; 86709; 86803; 87340; 90935; 93005; 93306; 93880; 93970; 99291; C9113; J1200; J1815; Q0162